=== PATIENT | female | born 1930 | race Caucasian/White ===

== ENCOUNTER 2016-09-07 10:28 | Day surgery (SDC) | payer MEDICARE ==
[~2016-09-07 10:28] MED LIST: PHENYLEPHRINE 2.5% OPHTH 2 ML DROPS ONE
[2016-09-07] MEDS ORDERED: LACTATED RINGERS 500 ML IV ONE (10:52)
[2016-09-07] MEDS ORDERED: MIDAZOLAM 2 MG/2 ML VIAL IVP ONE (11:00)
[2016-09-07] MEDS ORDERED: PROPARACAINE 0.5% OPHTH DROPS 15 ML OPTH ONE (11:51)
[2016-09-07] MEDS ORDERED: EPINEPHrine 1 MG/ML AMP IVP ONE (11:51)
[2016-09-07] MEDS ORDERED: CHONDR SULF/HYALURONATE SYRINGE IO ONE (11:51)
[2016-09-07] MEDS ORDERED: BRIMONIDINE 0.2% OPHTH DROPS 5 ML OPTH ONE (11:51)
[2016-09-07] MEDS ORDERED: TIMOLOL 0.5% OPHTH DROPS OPTH ONE (11:51)
[2016-09-07] MEDS ORDERED: BSS/LIDOCAINE/EPINEPHRINE 1 ML SYRINGE IO ONE (11:52)
[2016-09-07] MEDS ORDERED: TRIAMCIN/MOXIFLOX/VANCO 1 ML VIAL IO ONE ×2 (11:52)
--- NOTE | 2016-09-07 12:36 | OPERATIVE REPORT ---
DATE OF SURGERY: 09/07/2016 00:00:00 PREOPERATIVE DIAGNOSIS: Visually significant cataract, right eye. This is her first cataract surgery. POSTOPERATIVE DIAGNOSIS: Visually significant cataract, right eye. This is her first cataract surgery. NAME OF PROCEDURE: Phacoemulsification posterior chamber intraocular lens implant, right eye. SURGEON: Cezar Miranda MD. ANESTHESIA: Monitored anesthesia care. COMPLICATIONS: None. OPERATIVE INDICATIONS: This is an 86-year-old woman with progressive vision loss in the right eye due to 3+ nuclear sclerotic, 3+ cortical, and 2+ posterior subcapsular cataract. Best corrected visual acuity was 20/200 in the right eye. She also has wet macular degeneration for which she is being treated with Avastin. She was consented at length concerning the risks and benefits of cataract surgery, after which she expressed her desire to proceed with surgery. OPERATIVE PROCEDURE: The patient was taken into OR #2 and placed under monitored anesthesia care. A surgical time-out was conducted confirming the correct patient, correct procedure and correct surgical site. She was given topical anesthesia and then prepped and draped in the usual sterile fashion. The eye was entered at the 12 and 9-o'clock positions. Intracameral lidocaine was injected into the anterior chamber followed by Viscoat. A continuous tear curvilinear capsulorrhexis was performed. The nucleus was hydrodissected and phacoemulsified. The cortex was evacuated using automated infusion and aspiration (I/A). Provisc was injected in the capsular bag and an 18.0 diopter intraocular lens was inserted into the bag. Approximately 0.7 mL of a mixture of triamcinolone, moxifloxacin, and vancomycin was injected subconjunctivally in superior quadrant for infection and inflammation prophylaxis. I/A was used to evacuate the viscoelastic materials. The eye was inflated to physiologic pressure using balanced salt solution and found to be watertight. The patient was taken from the operating room in good condition and given postoperative instructions. JOB #: [id number] EXT JOB #:[id number] NEDA
[2016-09-07 12:40] VITALS: BP 128/60
== END 2016-09-07 10:29 | disposition home or self-care (01) ==
LOC: SDS 10:28
PROVIDERS: ATTEND Ophthalmology
PROC: 08RJ3JZ Replacement of Right Lens with Synthetic Substitute, Percutaneous Approach (ICD-10-PCS; principal; 2016-09-07 11:30)
DX: H25.811 Combined forms of age-related cataract, right eye (principal); J44.9 Chronic obstructive pulmonary disease, unspecified; H35.3230 Exudative age-related macular degeneration, bilateral, stage unspecified; F41.9 Anxiety disorder, unspecified
CPT/HCPCS: 66984; A9270; V2632

== ENCOUNTER 2017-01-18 08:59 | Day surgery (SDC) | payer MEDICARE ==
[~2017-01-18 08:59] MED LIST changes: +BRIMONIDINE 0.2% OPHTH DROPS 5 ML ONE; -PHENYLEPHRINE 2.5% OPHTH 2 ML DROPS ONE; +TIMOLOL 0.5% OPHTH DROPS ONE
[2017-01-18] MEDS ORDERED: PROPARACAINE 0.5% OPHTH DROPS 15 ML ONE (09:16)
[2017-01-18] MEDS ORDERED: CYCLOPENTOLATE 1% OPHTH DROPS 2 ML ONE (09:16)
[2017-01-18] MEDS ORDERED: KETOROLAC 0.45% OPHTH DROPS ONE (09:16)
[2017-01-18] MEDS ORDERED: PHENYLEPHRINE 2.5% OPHTH 2 ML DROPS ONE (09:16)
[2017-01-18] MEDS ORDERED: CYCLOPENTOLATE 1% OPHTH DROPS 2 ML OPTH ONE (09:28)
[2017-01-18] MEDS ORDERED: PHENYLEPHRINE 2.5% OPHTH 2 ML DROPS OPTH ONE (09:28)
[2017-01-18] MEDS ORDERED: PROPARACAINE 0.5% OPHTH DROPS 15 ML OPTH ONE ×2 (09:28→10:26)
[2017-01-18] MEDS ORDERED: KETOROLAC 0.45% OPHTH DROPS OPTH ONE (09:28)
[2017-01-18] MEDS ORDERED: LACTATED RINGERS 500 ML IV ONE (09:35)
[2017-01-18] MEDS ORDERED: MIDAZOLAM 2 MG/2 ML VIAL IVP ONE (10:00)
[2017-01-18] MEDS ORDERED: BRIMONIDINE 0.2% OPHTH DROPS 5 ML OPTH ONE (10:25)
[2017-01-18] MEDS ORDERED: EPINEPHrine 1 MG/ML AMP IVP ONE (10:25)
[2017-01-18] MEDS ORDERED: BSS/LIDOCAINE/EPINEPHRINE 1 ML SYRINGE IO ONE ×2 (10:26)
[2017-01-18] MEDS ORDERED: TIMOLOL 0.5% OPHTH DROPS OPTH ONE (10:26)
[2017-01-18] MEDS ORDERED: CHONDR SULF/HYALURONATE SYRINGE IO ONE (10:26)
[2017-01-18] MEDS ORDERED: TRIAMCIN/MOXIFLOX/VANCO 1 ML VIAL IO ONE (10:26)
[2017-01-18 10:44] VITALS: BP 117/64
--- NOTE | 2017-01-18 11:00 | OPERATIVE REPORT ---
DATE OF SURGERY: 01/18/2017 00:00:00 PREOPERATIVE DIAGNOSIS: Visually significant cataract, left eye. Cataract surgery was performed on th e right eye on 09/07/2016. POSTOPERATIVE DIAGNOSIS: Visually significant cataract, left eye. Cataract surgery was performed on t he right eye on 09/07/2016. NAME OF PROCEDURE: Phacoemulsification posterior chamber intraocular lens implant, left eye. SURGEON: Cezar Miranda MD. ANESTHESIA: Monitored anesthesia care. COMPLICATIONS: None. OPERATIVE INDICATIONS: This is an 86-year-old woman with progressive vision loss in the left eye due to 2+ nuclear sclerotic and 3+ cortical cataract. Best corrected visual acuity was 20/25 with glare t o 20/40 in the left eye. Indications for surgery were overall decrease in vision, difficulty reading, difficulty seeing words, close captions, or game scores on TV. She was consented at length concernin g the risks and benefits of cataract surgery, after which she expressed her desire to proceed with [facility]. OPERATIVE PROCEDURE: The patient was taken into OR #2 and placed under monitored anesthesia care. A s urgical time-out was conducted confirming the correct patient, correct procedure and correct surgical site. She was given topical anesthesia and then prepped and draped in the usual sterile fashion. The eye was entered at the 6- and 3 o'clock positions. Intracameral Shugarcaine was injected into the an terior chamber followed by Viscoat. A continuous tear curvilinear capsulorrhexis was performed. The n ucleus was hydrodissected and phacoemulsified. The cortex was evacuated using automated infusion aspi ration. Provisc was injected into the capsular bag and a 16.5 diopter intraocular lens inserted into the bag. Approximately 0.7 mL of a mixture of triamcinolone, moxifloxacin, and vancomycin was injecte d subconjunctivally in the superior quadrant for infection and inflammation prophylaxis. I/A was used to evacuate the viscoelastic materials. The eye was inflated to physiologic pressure using balanced salt solution and found to be watertight. The patient was taken from the operating room in good condi tion and given postoperative instructions. JOB #: [id number] EXT JOB #:[id number]
== END 2017-01-18 09:00 | disposition home or self-care (01) ==
LOC: SDS 08:59
PROVIDERS: ATTEND Ophthalmology
PROC: 08RK3JZ Replacement of Left Lens with Synthetic Substitute, Percutaneous Approach (ICD-10-PCS; principal; 2017-01-18 10:00)
DX: H25.812 Combined forms of age-related cataract, left eye (principal); J44.9 Chronic obstructive pulmonary disease, unspecified; F17.200 Nicotine dependence, unspecified, uncomplicated
CPT/HCPCS: 66984; A9270; J3490; V2632

== ENCOUNTER 2017-09-05 14:17 | Outpatient (CLI) | payer MEDICARE ==
[2017-09-05 18:03] LABS: BASOPHILS # (AUTO) 0.1 10^3/uL (0.0-0.1); BASOPHILS % (AUTO) 0.9 %; EOSINOPHILS # (AUTO) 0.2 10^3/uL (0.0-0.7); EOSINOPHILS % (AUTO) 2.3 %; LYMPHOCYTES # (AUTO) 1.9 10^3/uL (1.5-3.5); LYMPHOCYTES % (AUTO) 25.9 %; MEAN CORPUSCULAR HEMOGLOBIN 28.4 pg (27.0-31.0); MEAN CORPUSCULAR HGB CONC 32.9 g/dL (32.0-36.0); MEAN CORPUSCULAR VOLUME 86.4 fL (81.0-99.0); MEAN PLATELET VOLUME 9.3 fL (7.9-10.8); MONOCYTES # (AUTO) 0.7 10^3/uL (0.0-1.0); MONOCYTES % (AUTO) 9.8 %; NEUTROPHILS # (AUTO) 4.4 10^3/uL (1.5-6.6); NEUTROPHILS % (AUTO) 61.1 %; PLT - PLATELET COUNT 267 10^3/uL (130-450); RED BLOOD COUNT 4.56 10^6/uL (4.20-5.40); WHITE BLOOD COUNT 7.2 x10^3/uL (4.8-10.8)
[2017-09-05 18:11] LABS: HB2 TOTAL 14.4 g/dL; HEMOGLOBIN A1C 0.5 g/dL; HEMOGLOBIN A1C % 5.3 % (4.6-6.2)
[2017-09-05 18:21] LABS: THYROID STIMULATING HORMONE 1.81 uIU/mL (0.34-5.60)
[2017-09-05 18:27] LABS: FERRITIN 24.2 ng/mL (11.0-306.8)
[2017-09-05 18:41] LABS: ALBUMIN 3.7 g/dL (3.2-5.5); ALBUMIN/GLOBULIN RATIO 1.1 (1.0-2.2); BILIRUBIN,TOTAL 0.6 mg/dL (0.2-1.0); CALCIUM 9.2 mg/dL (8.5-10.3); CREATININE 0.8 mg/dL (0.4-1.0); MAGNESIUM 2.4 mg/dL (1.7-2.8); TOTAL PROTEIN 7.2 g/dL (6.7-8.2)
== END 2017-09-05 14:18 | disposition home or self-care (01) ==
LOC: LAB.F 14:17
PROVIDERS: ATTEND Physician Assistant Medical
DX: G25.9 Extrapyramidal and movement disorder, unspecified (principal); Z86.2 Personal history of diseases of the blood and blood-forming organs and certain disorders involving the immune mechanism; Z51.81 Encounter for therapeutic drug level monitoring; Z79.899 Other long term (current) drug therapy; R73.01 Impaired fasting glucose; R25.2 Cramp and spasm; E04.1 Nontoxic single thyroid nodule
CPT/HCPCS: 36415; 80053; 82728; 83036; 83540; 83735; 84443; 84466; 85025

== ENCOUNTER 2017-11-08 11:51 | Outpatient (CLI) | payer MEDICARE ==
--- NOTE | 2017-11-08 14:56 | Ultrasound Report ---
Procedure Date: 11/08/2017 Accession Number: [id number] / [id number] Procedure: US - Head or Neck Soft Tissue CPT Code: FULL RESULT: EXAM: Head or Neck Soft Tissue DATE: 11/08/2017 12:56 PM CLINICAL HISTORY: THYROID/NECK COMPARISON: 02/19/2015 thyroid ultrasound.. TECHNIQUE: Real time sonographic imaging of the thyroid was performed by the awning erector. Multiple risk control representative static images were saved for review. FINDINGS: THYROID GLAND: Right Lobe: 4.5 x 2.7 x 3.1 cm. Normal background echotexture. Right Lobe Nodules: Dominant 2.9 x 2.8 x 2.7 cm heterogeneous solid nodule. Left Lobe: 4.7 x 0.8 x 1.7 cm. Normal background echotexture. Left Lobe Nodules: There is a 1.2 x 0.3 x 0.8 cm hypoechoic nodule as well as a 0.4 x 0.2 x 0.3 cm heterogeneous isoechoic nodule.. Isthmus: 0.2 cm AP. Isthmic Nodules: None. LYMPH NODES: No adenopathy demonstrated in the central or lateral compartment. OTHER: None. IMPRESSION: 1. Multinodular thyroid with a dominant solid 2.9 cm right lobe nodule. Tissue sampling of the right nodule is recommended unless this has already been proven benign. Management recommendations are based on 2015 [place] [employer] Management Guidelines for Adult Patients with Thyroid Nodules and Differentiated Thyroid Cancer. RADIA
== END 2017-11-08 11:52 | disposition home or self-care (01) ==
LOC: DI 11:51
PROVIDERS: ATTEND Physician Assistant Medical
DX: E04.2 Nontoxic multinodular goiter (principal)
CPT/HCPCS: 76536

== ENCOUNTER 2018-02-24 09:36 | Outpatient (CLI) | payer MEDICARE | END 2018-02-24 09:37 | disposition critical access hospital (66) | LOC: EMS 09:36 | PROVIDERS: ATTEND Surgery | DX: R10.9 Unspecified abdominal pain (principal) | CPT/HCPCS: A0425; A0429 ==

== ENCOUNTER 2018-02-24 10:02 | Inpatient (IN) | payer MEDICARE ==
--- NOTE | 2018-02-24 10:12 | ED Physician Documentation ---
History of Present Illness - Stated complaint Stated Complaint: ABD PX - Additonal information Additional information: hx from pt 87 female BIBA for lower abd pain 01/09 since last night hx divertic pshx appy also has a HH states no fever NVD bloody black BM states has not urinated since last night no bad food travel sick contacts only home med is albuterol Review of Systems Constitutional: denies: Fever Cardiac: denies: Chest pain / pressure Respiratory: denies: Dyspnea GI: reports: Abdominal Pain. denies: Nausea, Vomiting, Diarrhea, Hematemesis, Bloody / black stool : reports: Other (no urine output). denies: Now EGA Musculoskeletal: denies: Neck pain, Back pain Endocrine: denies: Easy bruising / bleeding Immunocompromised: denies: Immunocompromised PD PAST MEDICAL HISTORY - Past Medical History Cardiovascular: None Respiratory: Pneumonia, Other Endocrine/Autoimmune: None GI: None : None HEENT: Chronic vision loss Psych: None Musculoskeletal: None Derm: None - Past Surgical History Past Surgical History: No General: Appendectomy - Present Medications Home Medications: Ambulatory Orders Medication Instructions Recorded Confirmed Albuterol Sulfate [Proair Hfa 2 puffs INH BID 02/24/18 02/24/18 Inhaler] Docusate Sodium 100 mg PO Q2D 02/24/18 02/24/18 Multivitamin [Theragran] 1 tab PO DAILY 02/24/18 02/24/18 diphenhydrAMINE HCl 12.5 mg PO QPM 02/24/18 02/24/18 [Diphenhydramine HCl] - Allergies Allergies/Adverse Reactions: Allergies Allergy/AdvReac Type Severity Reaction Status Date / Time acetaminophen [From Vicodin] Allergy Hives Verified 02/24/18 10:22 hydrocodone [From Vicodin] Allergy Hives Verified 02/24/18 10:22 pramipexole [From Mirapex] Allergy Hives Verified 02/24/18 10:22 pravastatin [From Pravachol] Allergy Hives Verified 02/24/18 10:22 - Social History Does the pt smoke?: No Smoking Status: Never smoker Does the pt drink ETOH?: No Does the pt have substance abuse?: No - Immunizations Immunizations are current?: Yes PD ED PE NORMAL - Vitals Vital signs reviewed: Yes - Neck Neck: Supple, no meningeal sign - Cardiac Cardiac: RRR - Respiratory Respiratory: No respiratory distress - Abdomen Abdomen: Soft, Other (sig TTP aakash ecross lower abd, non peritoneal, no pulsatile mass palpable) - Derm Derm: Normal color - Neuro Neuro: Alert and oriented X 3 Results - Vitals Vitals: Vital Signs - 24 hr 02/24/18 02/24/18 10:13 12:12 Temperature 37.1 C 37.2 C Heart Rate 94 94 Respiratory 20 16 Rate Blood Pressure 130/69 134/45 H O2 Saturation 95 92 Oxygen O2 Source Room air - Labs Labs: Laboratory Tests 02/24/18 02/24/18 02/24/18 10:21 10:21 10:50 WBC 12.1 H RBC 4.37 Hgb 13.0 Hct 38.0 MCV 87.0 MCH 29.7 MCHC 34.1 RDW 13.9 Plt Count 188 MPV 8.7 Neut # (Auto) 10.8 H Lymph # (Auto) 0.5 L Scurry # (Auto) 0.7 Eos # (Auto) 0.0 Baso # (Auto) 0.1 Absolute Nucleated RBC 0.00 Nucleated RBC % 0.0 Sodium 134 L Potassium 3.6 Chloride 101 Carbon Dioxide 25 Anion Gap 8.0 BUN 13 Creatinine 0.9 Estimated GFR (MDRD) 59 L Glucose 148 H Calcium 8.6 Total Bilirubin 1.0 AST 16 ALT 12 Alkaline Phosphatase 75 Total Protein 6.7 Albumin 3.7 Globulin 3.0 Albumin/Globulin Ratio 1.2 Lipase 21 L Urine Color DARK YELLOW Urine Clarity CLEAR Urine pH 5.5 Ur Specific [place] >=1.030 H Urine Protein NEGATIVE Urine Glucose (UA) NEGATIVE Urine Ketones NEGATIVE Urine Occult Blood NEGATIVE Urine Nitrite NEGATIVE Urine Bilirubin NEGATIVE Urine Urobilinogen 0.2 (NORMAL) Ur Leukocyte Esterase NEGATIVE Ur Microscopic Review NOT INDICATED Urine Culture Comments NOT INDICATED - Rads (name of study) CT AP Radiology: See rad report (acute divertic s abscess or perf, mild L hydro s sto ne liekly 2/2 inflammation) PD MEDICAL DECISION MAKING - ED course ED course: small amt urine out padgett with IVF CT shows diverticultitis gave unasyn no perf abscess but feel pt febrile dehydrated and too ill to take PO properly to stay hydrated and take meds will admit paged hospitalist at 1320 Departure - Departure Disposition: 66 [facility] DC/Xfer Clinical Impression: Diverticulitis of gastrointestinal tract, Dehydration Discharge Date/Time: 02/24/18 14:59
[2018-02-24] MEDS ORDERED: MORPHINE 2 MG/ML CARPUJECT IVP STA ×2 (10:13→13:47)
[2018-02-24] MEDS ORDERED: SODIUM CHLORIDE 0.9% 1,000 ML IV ONE (10:13)
[2018-02-24] MEDS ORDERED: ONDANSETRON 4 MG/2 ML VIAL IVP STA (10:13)
[2018-02-24 10:26] LABS: BASOPHILS # (AUTO) 0.1 10^3/uL (0.0-0.1); BASOPHILS % (AUTO) 0.6 %; LYMPHOCYTES # (AUTO) 0.5 10^3/uL (1.5-3.5); MEAN CORPUSCULAR HEMOGLOBIN 29.7 pg (27.0-31.0); MEAN CORPUSCULAR HGB CONC 34.1 g/dL (32.0-36.0); MEAN PLATELET VOLUME 8.7 fL (7.9-10.8); MONOCYTES # (AUTO) 0.7 10^3/uL (0.0-1.0); MONOCYTES % (AUTO) 5.4 %; NEUTROPHILS # (AUTO) 10.8 10^3/uL (1.5-6.6); PLT - PLATELET COUNT 188 10^3/uL (130-450); RED BLOOD COUNT 4.37 10^6/uL (4.20-5.40); RED CELL DISTRIBUTION WIDTH 13.9 % (12.0-15.0); WHITE BLOOD COUNT 12.1 x10^3/uL (4.8-10.8)
[2018-02-24 10:41] LABS: ALBUMIN 3.7 g/dL (3.2-5.5); ALBUMIN/GLOBULIN RATIO 1.2 (1.0-2.2); CALCIUM 8.6 mg/dL (8.5-10.3); CREATININE 0.9 mg/dL (0.4-1.0); TOTAL PROTEIN 6.7 g/dL (6.7-8.2)
[2018-02-24 11:00] LABS: BILIRUBIN,URINE NEGATIVE (NEGATIVE); CLARITY,URINE CLEAR (CLEAR); GLUCOSE, URINE (UA) NEGATIVE (NEGATIVE); KETONES,URINE (UA) NEGATIVE (NEGATIVE); LEUKOCYTE ESTERASE, URINE NEGATIVE (NEGATIVE); NITRITE,URINE NEGATIVE (NEGATIVE); OCCULT BLOOD,URINE NEGATIVE (NEGATIVE); PH,URINE 5.5 PH (5.0-7.5); PROTEIN,URINE NEGATIVE (NEGATIVE); UROBILINOGEN,URINE 0.2 (NORMAL) E.U./dL (NORMAL)
--- NOTE | 2018-02-24 11:38 | CT Report ---
Reason: severe abd pain Procedure Date: 02/24/2018 Accession Number: [id number] / [id number] Procedure: CT - Abdomen/Pelvis W/O CPT Code: FULL RESULT: EXAM: CT ABDOMEN AND PELVIS WITHOUT CONTRAST EXAM DATE: 02/24/2018 10:30 AM. CLINICAL HISTORY: Severe abdominal pain. COMPARISONS: CHEST W/ 01/18/2015 3:29 PM. TECHNIQUE: Routine helical CT imaging was performed through the abdomen and pelvis. IV contrast: None. Enteric contrast: No. Reconstructions: Coronal and sagittal. In accordance with CT protocol optimization, one or more of the following dose reduction techniques were utilized for this exam: automated exposure control, adjustment of mA and/or KV based on patient size, or use of iterative reconstructive technique. FINDINGS: Lung Bases: Unremarkable. Liver: Unremarkable noncontrast appearance. Gallbladder/Bile Ducts: Unremarkable. Spleen: Unremarkable. Pancreas: Unremarkable. Adrenal Glands: Unremarkable. Kidneys: No contour deforming mass. No renal calculi. No right hydronephrosis. There is mild left hydronephrosis. Peritoneal Cavity/Bowel: There is a small hiatal hernia. No bowel obstruction or abnormal colonic stool burden. There is moderate diverticulosis of the sigmoid:. There is a short segment of circumferential wall thickening with adjacent mesenteric fat stranding in the proximal sigmoid colon consistent with acute diverticulitis. No evidence of perforation or abscess formation. The appendix is not well visualized, but there is no inflammatory change or fluid adjacent to the cecum to suggest acute appendicitis. Pelvic Organs: Normal. The bladder and visualized pelvic organs are within normal limits. Vasculature: No aneurysms or other significant abnormality. There is mild atherosclerotic calcification of the abdominal aorta and iliac arteries. Bones: No significant abnormality. Other: None. IMPRESSION: 1. Acute diverticulitis of the sigmoid colon without evidence of perforation or abscess formation. 2. Mild left hydronephrosis. No renal collecting system calculi identified. Mild left hydronephrosis may be secondary to inflammatory changes adjacent to the left ureter due to acute diverticulitis RADIA
[2018-02-24] MEDS ORDERED: AMPICILLIN/SULBACTAM 3 GM in SODIUM CHLORIDE 0.9% MINIBAG 100 ML IV STA (11:55)
--- NOTE | 2018-02-24 14:14 | HISTORY & PHYSICAL EXAMINATION ---
Chief Complaint - Chief Complaint Chief Complaint: LLQ pain, fever, fatigue History of Present Illness - Admitted From Admitted From:: ED - History Obtained From Records Reviewed: yes History obtained from: chart review, patient Exam Limitations: none - History of Present Illness HPI Comment/Other: Mely Gurrola is an elderly 87-year old female with a past medial history of urinary incontinence, bladder prolapse, vaginal wall prolapse, anemia, pre- diabetes, chronic sinusitis, otitis media, zenker's diverticulum, macular de generation, thyroid nodule, muscle cramps, varicose veins, hyperglycemia, dysphagia, COPD, chronic hip pain, restless leg syndrome, diverticulosis, and obesity. The patient lives with her daughter, Kaia and has been independent on her own using only a cane. 2 days ago the patient started to have LLQ abdominal pain, loss of appetite, fever, chills, fatigue and this morning her daughter could not get her out of bed, so called EMS. Once in the ED she was found to have an elevated WBC count of 12.1, an elevated glucose of 148, with otherwise normal labs. Imaging confirmed diverticulitis with abscesses or perforation, a mild left hydro stone likely secondary to inflammation and urinary retention. With her history of a prolapsed bladder, and urinary retention, a padgett cath was inserted which did not show acute UTI and was noted to be dark in color. On exam, her daughter was very intrusive about asking for her PCP to be changed since Joann Bonilla will not prescribe Xanax anymore. It was very difficult to re-focus our conversation to her mother's acute illness and circled back to the opiate crisis, and her mother needing the xanax as she has restless leg syndrome and this is the only medication that has proved to help. On exam the patient is ill appearing, and her daughter talks over her for several of the questions. She denies chest pain, a productive cough, bleeding, rashes, or increased shortness of breath. She will be admitted to inpatient for further treatment of her acute illness. History - Past Medical History Cardiovascular: reports: Hypertension, High cholesterol, Murmur Respiratory: reports: COPD, Pneumonia, Other Neuro: reports: Dementia Endocrine/Autoimmune: reports: HyPOthyroidism GI: reports: GERD, Chronic diarrhea, Chronic constipation, Diverticulitis, Other (zenkers diverticulum) : reports: Incontinence, Nocturia, Frequency, Other (prolapsed bladder) HEENT: reports: Chronic vision loss Psych: reports: Depression, Anxiety Musculoskeletal: reports: Osteoarthritis, Chronic back pain Derm: reports: None MRSA Hx?: No - Past Surgical History General: reports: Appendectomy - Family & Social History Family History: Mother: , Father: , Sister: , Brother: Family History Comment/Other: The patient's parents of old age with no known diseases, her brother after getting electrocuted. She had one sister with no known diseases. 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 She moved in with her daughter in [place] after her in 1999. She is independent with ambulation and ADLs and uses a cane at times. She admits to a 40 year smoking history, denies alcohol use or illicit drug use. - Substance History Use: Uses substance without health or social issues: NONE Abuse: Recurrent use of substance despite neg consequences: NONE Dependence: Experiences withdrawal or developed tolerances: NONE - POLST Patient has POLST: No POLST Status: DNR Meds/Allgy - Home Medications Home Medications: Ambulatory Orders Medication Instructions Recorded Confirmed Albuterol Sulfate [Proair Hfa 2 puffs INH BID 02/24/18 02/24/18 Inhaler] Docusate Sodium 100 mg PO Q2D 02/24/18 02/24/18 Multivitamin [Theragran] 1 tab PO DAILY 02/24/18 02/24/18 diphenhydrAMINE HCl 12.5 mg PO QPM 02/24/18 02/24/18 [Diphenhydramine HCl] - Allergies Allergies/Adverse Reactions: Allergies Allergy/AdvReac Type Severity Reaction Status Date / Time hydrocodone [From Vicodin] Allergy Hives Verified 02/24/18 10:22 pramipexole [From Mirapex] Allergy Hives Verified 02/24/18 10:22 pravastatin [From Pravachol] Allergy Hives Verified 02/24/18 10:22 Review of Systems - Constitutional Constitutional: reports: Fatigue, Fever, Chills, Weakness, Poor appetite - Eyes Eyes: reports: Spots in vision, Vision loss - Ears, Nose & Throat Ears, Nose & Throat: reports: Hearing loss, Nasal congestion - Cardiovascular Cariovascular: reports: Decr. exercise tolerance, Orthopnea - Respiratory Respiratory: reports: Orthopnea - Gastrointestinal Gastrointestinal: reports: Abdominal pain, Abdominal distention, Constipation, Diarrhea, Change in bowel habits, Nausea, Vomiting, Reflux/heartburn, Bloating, Poor appetite - Genitourinary Genitourinary: reports: Dysuria, Frequency, Urgency, Incontinence, Nocturia, Other (prolapsed bladder) - Musculoskeletal Musculoskeletal: reports: Back pain - Neurological Neurological: reports: General weakness, Focal weakness, Memory problems, Pre- existing deficit - Psychiatric Psychiatric: reports: Depression, Anxiety - Hematologic/Lymphatic Hematologic/Lymphatic: reports: Anemia - All Other Systems All Other Systems: reports: Reviewed and negative Prior Level of Functionality: Independent with a cane, no recent falls. Lives independently with her daughter and a prolapsed bladder that becomes "entangled in her underwear at times while she sits". Exam - Vital Signs Reviewed Vital Signs: Yes Vital Signs: Vital Signs x48h Temp Pulse Resp BP Pulse Ox 02/24/18 12:12 37.2 C 94 16 134/45 H 92 02/24/18 10:13 37.1 C 94 20 130/69 95 - Physical Exam General Appearance: positive: No acute distress, Alert Eyes Bilateral: positive: PERRL, Conjunctivae nml ENT: positive: Pharynx nml, No signs of dehydration Neck: positive: No JVD, Trachea midline, Lymphadenopathy (R), Lymphadenopathy (L) Respiratory: positive: Chest non-tender, Other (scattered crackles) Cardiovascular: positive: Regular rate & rhythm, No gallop, Systolic murmur, Decreased pulse(s) Peripheral Pulses: positive: 1+ Abdomen: positive: Tenderness, Guarding, Hepatomegaly, Abnml bowel sounds, Other (obese, soft) Back: positive: Nml inspection Skin: positive: No rash, Warm, Dry Extremities: positive: Non-tender, Nml appearance, No pedal edema Neurologic/Psychiatric: positive: Oriented x3, CN's nml (2-12), Motor nml, Sensation nml, Depressed mood/affect Reflexes: Bicep (R): 3+, Bicep (L): 3+ Sepsis Event Note (H) - Evaluation Current Stage of Sepsis: Ruled out Conclusion/Plan - Problem List (1) Diverticulitis of gastrointestinal tract Conclusion/Plan: The patient has known diverticulitis and has had diverticulitis in the past. 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 She had a fever at home that continues here, a WBC count of 12.1, LLQ abdominal pain, increased abdominal girth, and nausea. Imaging confirms diverticulitis in the sigmoid colon without mention of perforation or abbesses. Plan: Start antibiotics, and a probiotic. (2) COPD (chronic obstructive pulmonary disease) Conclusion/Plan: The patient had a 40 year smoking history, but has not smoked in several years. She states that she has COPD and has a rescue inhaler at home. I have added a duo-neb as needed while she is with us. Plan: Monitor for SOB, duo-neb as needed and prescribed a LABA at discharge. (3) Urinary retention Conclusion/Plan: The patient has both urinary retention and a prolapsed bladder. She has been set up with a pesery device, but this has not occurred yet. A padgett cath was in serted in the ED and preliminary urine results do not show evidence of a UTI. Plan: Continue padgett. (4) Restless leg syndrome Conclusion/Plan: The patient's daughter, Kaia was present for her admission exam and was very focused on how her mother used to be on xanax for her restless legs, but no longer is, which in her opinion, has to do with the PCP "ignoring" her. She has not been prescribed anything for this and takes nightly benadryl. Plan: Continue to to monitor. - Lab Results Lab results reviewed: Yes Nolberto Bones: 02/25/18 06:43 02/25/18 06:43 - Diagnostic Imaging Results Diagnostic Imaging Results: positive: Final report reviewed Diagnostic Imaging Results Comments: EXAM: CT ABDOMEN AND PELVIS WITHOUT CONTRAST EXAM DATE: 02/24/2018 10:30 AM. IMPRESSION: 1. Acute diverticulitis of the sigmoid colon without evidence of perforation or abscess formation. 2. Mild left hydronephrosis. No renal collecting system calculi identified. Mild left hydronephrosis may be secondary to inflammatory changes adjacent to the left ureter due to acute diverticulitis. Core Measures - Anticipated LOS I expect patient to be DC'd or transferred within 96 hours.: Yes - DVT/VTE - Prophylaxis VTE/DVT Device ordered at admit?: Yes VTE/DVT Prophylaxis med ordered at admit?: Yes - Stroke - Rehab Assessment Rehab services assessment to be ordered?: Yes - AMI - Statin at Admit Aspirin Prescribed on Admit: Yes
[2018-02-24] MEDS ORDERED: ACETAMINOPHEN 325 MG TABLET PO STA (14:27)
[2018-02-24] MEDS: SODIUM CHLORIDE FLUSH 0.9% 10 ML SYRINGE IVP SCH (15:59)
[2018-02-24] MEDS: SODIUM CHLORIDE 0.9% 1,000 ML IV SCH (16:00)
[2018-02-24] MEDS: MORPHINE 2 MG/ML CARPUJECT IVP PRN ×2 (17:30→20:50)
[2018-02-24] MEDS ORDERED: CEFEPIME 2 GM in SODIUM CHLORIDE 0.9% MINIBAG 100 ML IV SCH (20:00)
[2018-02-24] MEDS: metroNIDAZOLE 500 MG/100 ML 500 MG/100 ML BAG IV SCH (20:50)
[2018-02-24] MEDS: CEFEPIME 2 GM in SODIUM CHLORIDE 0.9% MINIBAG 100 ML IV SCH (22:07)
[2018-02-25] MEDS: MORPHINE 2 MG/ML CARPUJECT IVP PRN ×3 (00:37→14:24)
[2018-02-25] MEDS: metroNIDAZOLE 500 MG/100 ML 500 MG/100 ML BAG IV SCH ×3 (03:27→18:55)
[2018-02-25] MEDS: SODIUM CHLORIDE FLUSH 0.9% 10 ML SYRINGE IVP SCH ×3 (05:19→18:35)
[2018-02-25] MEDS: SODIUM CHLORIDE 0.9% 1,000 ML IV SCH ×2 (05:39→18:58)
[2018-02-25 06:52] LABS: BASOPHILS % (AUTO) 0.1 %; EOSINOPHILS % (AUTO) 0.1 %; HGB - HEMOGLOBIN 11.6 g/dL (12.0-16.0); LYMPHOCYTES # (AUTO) 0.7 10^3/uL (1.5-3.5); LYMPHOCYTES % (AUTO) 6.1 %; MEAN CORPUSCULAR HEMOGLOBIN 29.6 pg (27.0-31.0); MEAN CORPUSCULAR HGB CONC 34.1 g/dL (32.0-36.0); MEAN CORPUSCULAR VOLUME 86.8 fL (81.0-99.0); MEAN PLATELET VOLUME 8.6 fL (7.9-10.8); MONOCYTES # (AUTO) 0.6 10^3/uL (0.0-1.0); MONOCYTES % (AUTO) 5.4 %; NEUTROPHILS # (AUTO) 10.6 10^3/uL (1.5-6.6); NEUTROPHILS % (AUTO) 88.3 %; PLT - PLATELET COUNT 168 10^3/uL (130-450); RED BLOOD COUNT 3.92 10^6/uL (4.20-5.40)
[2018-02-25 08:25] LABS: ALBUMIN/GLOBULIN RATIO 0.9 (1.0-2.2); BILIRUBIN,TOTAL 1.2 mg/dL (0.2-1.0); CALCIUM 7.8 mg/dL (8.5-10.3); CREATININE 1.2 mg/dL (0.4-1.0); CRP - C-REACTIVE PROTEIN 20.6 mg/dL (0-1.0); MAGNESIUM 1.9 mg/dL (1.7-2.8); PHOSPHORUS 3.3 mg/dL (2.5-4.6); TOTAL PROTEIN 6.2 g/dL (6.7-8.2)
[2018-02-25 08:33] LABS: HB2 TOTAL 12.5 g/dL; HEMOGLOBIN A1C 0.49 g/dL; HEMOGLOBIN A1C % 5.7 % (4.6-6.2)
--- NOTE | 2018-02-25 08:53 | PROVIDER PROGRESS NOTE ---
Subjective - Prog Note Date Prog Note Date: 02/25/18 Prog Note Time: 08:53 - Subjective Pt reports feeling: Improved Subjective: Mely states that her original LLQ only comes and goes and on exam she appears more comfortable. She denies rashes, fevers, chills, cough, or chest pain. She states that she is tired today. Current Medications - Current Medications Current Medications: Active Medications Acetaminophen (Tylenol) 650 mg PO Q4HR PRN PRN Reason: Pain or Fever > 38C (100.4F) Albuterol/Ipratropium (Duoneb) 3 ml INH Q4HR PRN PRN Reason: Wheezing Last Admin: 02/25/18 16:20 Dose: 3 ml Albuterol/Ipratropium (Duoneb) 3 ml INH .RTBID [facility] Sodium Chloride (Normal Saline 0.9%) 1,000 mls @ 83.333 mls/hr IV .Q12H [facility] Last Infusion: 02/25/18 21:08 Dose: 83.333 mls/hr Metronidazole (Flagyl 500 Mg/100 Ml) 500 mg in 100 mls @ 100 mls/hr IV Q8H [facility] Last Infusion: 02/25/18 20:15 Dose: Infused Cefepime HCl 2 gm/ Sodium (Chloride) 100 mls @ 200 mls/hr IV Q12H [facility] Last Infusion: 02/25/18 21:07 Dose: Infused Acetaminophen (Ofirmev) 100 mls @ 400 mls/hr IV Q6HR PRN PRN Reason: PAIN Last Infusion: 02/25/18 20:36 Dose: Infused Lorazepam (Ativan Inj (Vial)) 0.5 mg IVP Q4H PRN PRN Reason: Anxiety Last Admin: 02/25/18 19:47 Dose: 0.5 mg Morphine Sulfate (Morphine (Carpuject)) 2 mg IVP Q2HR PRN PRN Reason: PAIN Last Admin: 02/25/18 14:24 Dose: 2 mg Ondansetron HCl (Zofran Inj) 4 mg IVP Q4HR PRN PRN Reason: Nausea / Vomiting Last Admin: 02/25/18 16:04 Dose: 4 mg Ondansetron HCl (Zofran Odt) 4 mg TL Q4HR PRN PRN Reason: Nausea / Vomiting Polyethylene Glycol (Miralax) 17 gm PO DAILY [facility] Last Admin: 02/25/18 09:19 Dose: 17 gm Prochlorperazine Edisylate (Compazine Inj) 10 mg IVP Q4HR PRN PRN Reason: Nausea / Vomiting Last Admin: 02/25/18 19:47 Dose: 10 mg Prochlorperazine Maleate (Compazine Supp) 25 mg [place] TID PRN PRN Reason: Nausea / Vomiting Saccharomyces Boulardii (Florastor) 500 mg PO BIDWM [facility] Last Admin: 02/25/18 18:35 Dose: Not Given Sodium Chloride (Normal Saline Flush 0.9%) 10 ml IVP PRN PRN PRN Reason: NEEDED PER PROVIDER ORDERS Sodium Chloride (Normal Saline Flush 0.9%) 10 ml IVP 0100,0900,1700 [facility] Last Admin: 02/25/18 18:35 Dose: Not Given Albuterol Sulfate [Proair Hfa Inhaler] 2 puffs INH BID 02/24/18 Docusate Sodium 100 mg PO Q2D 02/24/18 Multivitamin [Theragran] 1 tab PO DAILY 02/24/18 diphenhydrAMINE HCl [Diphenhydramine HCl] 12.5 mg PO QPM 02/24/18 Objective - Vital Signs/Intake & Output Reviewed Vital Signs: Yes Vital Signs: Vital Signs x48h Temp Pulse Resp BP Pulse Ox 02/25/18 08:00 36.7 C 67 22 108/42 L 92 02/25/18 05:25 36.7 C 70 18 112/50 L 94 Intake & Output: Intake & Output 02/22/18 02/23/18 02/24/18 02/25/18 23:59 23:59 23:59 23:59 Intake Total 1600 1100.00 Output Total 500 235 Balance 1100 865.00 - Objective General Appearance: positive: Alert, Moderate distress Eyes Bilateral: positive: PERRL, No lid inflammation Eyes: OU Conjunctivae pale ENT: positive: ENT inspection nml, Pharynx nml, Dry mucous membranes Neck: positive: Thyroid nml, No JVD, Trachea midline, Lymphadenopathy (R), Lymphadenopathy (L) Respiratory: positive: Chest non-tender, No respiratory distress, Breath sounds nml Cardiovascular: positive: Regular rate & rhythm, No gallop, Systolic murmur, Dec reased pulse(s) Peripheral Pulses: 1+ Radial (R), 1+ Radial (L) Abdomen: positive: Tenderness (less than at the time of admission.), Guarding, Hepatomegaly, Other (rounded, soft) Back: positive: Nml inspection Skin: positive: No rash, Warm, Dry, Pallor Extremities: positive: Non-tender, Full ROM, Pedal edema, Joint swelling Neurologic/Psychiatric: positive: Oriented x3, CN's nml (2-12), Motor nml, Sensation nml, Weakness, Depressed mood/affect Reflexes: Bicep (R): 3+, Bicep (L): 3+ - Lab Results Fish Bones: 02/25/18 06:43 02/25/18 06:43 Other Labs: Lab Results x24hrs 02/25/18 02/25/18 02/25/18 Range/Units 06:43 06:43 06:43 WBC (4.8-10.8) x10^3/uL RBC (4.20-5.40) 10^6/uL Hgb (12.0-16.0) g/dL Hct (37.0-47.0) % MCV (81.0-99.0) fL MCH (27.0-31.0) pg MCHC (32.0-36.0) g/dL RDW (12.0-15.0) % Plt Count (130-450) 10^3/uL MPV (7.9-10.8) fL Neut # (Auto) (1.5-6.6) 10^3/uL Lymph # (Auto) (1.5-3.5) 10^3/uL [place] # (Auto) (0.0-1.0) 10^3/uL Eos # (Auto) (0.0-0.7) 10^3/uL Baso # (Auto) (0.0-0.1) 10^3/uL Absolute Nucleated RBC x10^3/uL Nucleated RBC % /100WBC Sodium 136 (135-145) mmol/L Potassium 3.4 L (3.5-5.0) mmol/L Chloride 107 (101-111) mmol/L Carbon Dioxide 23 (21-32) mmol/L Anion Gap 6.0 (6-13) BUN 16 (6-20) mg/dL Creatinine 1.2 H (0.4-1.0) mg/dL Estimated GFR (MDRD) 42 L (>89) Glucose 115 H (70-100) mg/dL Glycated Hemoglobin 5.7 (4.6-6.2) % Estim Average Glucose 117 H (70-100) Lactic Acid 0.9 (0.5-2.2) mmol/L Calcium 7.8 L (8.5-10.3) mg/dL Phosphorus 3.3 (2.5-4.6) mg/dL Magnesium 1.9 (1.7-2.8) mg/dL Total Bilirubin 1.2 H (0.2-1.0) mg/dL AST 18 (10-42) IU/L ALT 14 (10-60) IU/L Alkaline Phosphatase 75 (42-121) IU/L C-Reactive Protein 20.6 H (0-1.0) mg/dL Total Protein 6.2 L (6.7-8.2) g/dL Albumin 3.0 L (3.2-5.5) g/dL Globulin 3.2 (2.1-4.2) g/dL Albumin/Globulin Ratio 0.9 L (1.0-2.2) Lipase (22-51) U/L Urine Color Urine Clarity (CLEAR) Urine pH (5.0-7.5) PH Ur Specific [place] (1.002-1.030) Urine Protein (NEGATIVE) mg/dL Urine Glucose (UA) (NEGATIVE) mg/dL Urine Ketones (NEGATIVE) mg/dL Urine Occult Blood (NEGATIVE) Urine Nitrite (NEGATIVE) Urine Bilirubin (NEGATIVE) Urine Urobilinogen (NORMAL) E.U./dL Ur Leukocyte Esterase (NEGATIVE) Ur Microscopic Review Urine Culture Comments 02/25/18 02/24/18 02/24/18 Range/Units 06:43 10:50 10:21 WBC 12.0 H (4.8-10.8) x10^3/uL RBC 3.92 L (4.20-5.40) 10^6/uL Hgb 11.6 L (12.0-16.0) g/dL Hct 34.0 L (37.0-47.0) % MCV 86.8 (81.0-99.0) fL MCH 29.6 (27.0-31.0) pg MCHC 34.1 (32.0-36.0) g/dL RDW 14.0 (12.0-15.0) % Plt Count 168 (130-450) 10^3/uL MPV 8.6 (7.9-10.8) fL Neut # (Auto) 10.6 H (1.5-6.6) 10^3/uL Lymph # (Auto) 0.7 L (1.5-3.5) 10^3/uL [place] # (Auto) 0.6 (0.0-1.0) 10^3/uL Eos # (Auto) 0.0 (0.0-0.7) 10^3/uL Baso # (Auto) 0.0 (0.0-0.1) 10^3/uL Absolute Nucleated RBC 0.00 x10^3/uL Nucleated RBC % 0.0 /100WBC Sodium 134 L (135-145) mmol/L Potassium 3.6 (3.5-5.0) mmol/L Chloride 101 (101-111) mmol/L Carbon Dioxide 25 (21-32) mmol/L Anion Gap 8.0 (6-13) BUN 13 (6-20) mg/dL Creatinine 0.9 (0.4-1.0) mg/dL Estimated GFR (MDRD) 59 L (>89) Glucose 148 H (70-100) mg/dL Glycated Hemoglobin (4.6-6.2) % Estim Average Glucose (70-100) Lactic Acid (0.5-2.2) mmol/L Calcium 8.6 (8.5-10.3) mg/dL Phosphorus (2.5-4.6) mg/dL Magnesium (1.7-2.8) mg/dL Total Bilirubin 1.0 (0.2-1.0) mg/dL AST 16 (10-42) IU/L ALT 12 (10-60) IU/L Alkaline Phosphatase 75 (42-121) IU/L C-Reactive Protein (0-1.0) mg/dL Total Protein 6.7 (6.7-8.2) g/dL Albumin 3.7 (3.2-5.5) g/dL Globulin 3.0 (2.1-4.2) g/dL Albumin/Globulin Ratio 1.2 (1.0-2.2) Lipase 21 L (22-51) U/L Urine Color DARK YELLOW Urine Clarity CLEAR (CLEAR) Urine pH 5.5 (5.0-7.5) PH Ur Specific [place] >=1.030 H (1.002-1.030) Urine Protein NEGATIVE (NEGATIVE) mg/dL Urine Glucose (UA) NEGATIVE (NEGATIVE) mg/dL Urine Ketones NEGATIVE (NEGATIVE) mg/dL Urine Occult Blood NEGATIVE (NEGATIVE) Urine Nitrite NEGATIVE (NEGATIVE) Urine Bilirubin NEGATIVE (NEGATIVE) Urine Urobilinogen 0.2 (NORMAL) (NORMAL) E.U./dL Ur Leukocyte Esterase NEGATIVE (NEGATIVE) Ur Microscopic Review NOT INDICATED Urine Culture Comments NOT INDICATED 02/24/18 Range/Units 10:21 WBC 12.1 H (4.8-10.8) x10^3/uL RBC 4.37 (4.20-5.40) 10^6/uL Hgb 13.0 (12.0-16.0) g/dL Hct 38.0 (37.0-47.0) % MCV 87.0 (81.0-99.0) fL MCH 29.7 (27.0-31.0) pg MCHC 34.1 (32.0-36.0) g/dL RDW 13.9 (12.0-15.0) % Plt Count 188 (130-450) 10^3/uL MPV 8.7 (7.9-10.8) fL Neut # (Auto) 10.8 H (1.5-6.6) 10^3/uL Lymph # (Auto) 0.5 L (1.5-3.5) 10^3/uL [place] # (Auto) 0.7 (0.0-1.0) 10^3/uL Eos # (Auto) 0.0 (0.0-0.7) 10^3/uL Baso # (Auto) 0.1 (0.0-0.1) 10^3/uL Absolute Nucleated RBC 0.00 x10^3/uL Nucleated RBC % 0.0 /100WBC Sodium (135-145) mmol/L Potassium (3.5-5.0) mmol/L Chloride (101-111) mmol/L Carbon Dioxide (21-32) mmol/L Anion Gap (6-13) BUN (6-20) mg/dL Creatinine (0.4-1.0) mg/dL Estimated GFR (MDRD) (>89) Glucose (70-100) mg/dL Glycated Hemoglobin (4.6-6.2) % Estim Average Glucose (70-100) Lactic Acid (0.5-2.2) mmol/L Calcium (8.5-10.3) mg/dL Phosphorus (2.5-4.6) mg/dL Magnesium (1.7-2.8) mg/dL Total Bilirubin (0.2-1.0) mg/dL AST (10-42) IU/L ALT (10-60) IU/L Alkaline Phosphatase (42-121) IU/L C-Reactive Protein (0-1.0) mg/dL Total Protein (6.7-8.2) g/dL Albumin (3.2-5.5) g/dL Globulin (2.1-4.2) g/dL Albumin/Globulin Ratio (1.0-2.2) Lipase (22-51) U/L Urine Color Urine Clarity (CLEAR) Urine pH (5.0-7.5) PH Ur Specific [place] (1.002-1.030) Urine Protein (NEGATIVE) mg/dL Urine Glucose (UA) (NEGATIVE) mg/dL Urine Ketones (NEGATIVE) mg/dL Urine Occult Blood (NEGATIVE) Urine Nitrite (NEGATIVE) Urine Bilirubin (NEGATIVE) Urine Urobilinogen (NORMAL) E.U./dL Ur Leukocyte Esterase (NEGATIVE) Ur Microscopic Review Urine Culture Comments ABX Reporting Has patient been on IV antibiotics over the past 48 hours?: Yes Sepsis Event Note (H) - Evaluation Current Stage of Sepsis: Ruled out Assessment/Plan - Problem List (1) Diverticulitis of gastrointestinal tract Impression: The patient has known diverticulitis and has had diverticulitis in the past. 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 She had a fever at home that continued shortly after admission, but is now resolved. She had a WBC count of 12.1 that is now 12.0. She had severe LLQ abdominal pain and on exam today, this is much improved. She continues to have an increased abdominal girth, and nausea. She is not tolerating PO intake. Imaging confirms diverticulitis in the sigmoid colon without mention of perforation or abbesses. Plan: Continue IV antibiotics, control nausea, and continue probiotic. (2) Nausea & vomiting Impression: The patient's primary complaint today was her ongoing N/V and there was a request for additional medications over her as needed Zofran. I have added a compazine AK/IV med, and IV lorazepam as this can be calming, having anti-emetic effects. Plan: Continue to monitor and treat underlying cause of diverticulitis. 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 She has been set up with a pesery device, but this has not occurred yet. A padgett cath was inserted in the ED and preliminary urine results do not show evidence of a UTI. Plan: Continue padgett. (4) Restless leg syndrome Impression: The patient's daughter, Kaia was present for her admission exam and was very focused on how her mother used to be on xanax for her restless legs, but no longer is, which in her opinion, has to do with the PCP "ignoring" her. She has not been prescribed anything for this and takes nightly benadryl. Today care in [place] paid her a visit and suggested that they contact [facility] since that is the patient's insurance and there is no point in making a referral if it is not approved by [facility] first. To help with the patient's nausea, I have added IV lorazepam, that may also help with her restless legs. Plan: Continue to to monitor. (5) COPD (chronic obstructive pulmonary disease) Impression: The patient had a 40 year smoking history, but has not smoked in several years. She states that she has COPD and has a rescue inhaler at home. She continues on a duo-neb as needed while she is with us. She talked today about having pulmonary nodules in the past that were caused by her "advair inhaler", but have since resolved. Plan: Monitor for SOB, duo-neb as needed and prescribed a LABA at discharge.
[2018-02-25] MEDS: CEFEPIME 2 GM in SODIUM CHLORIDE 0.9% MINIBAG 100 ML IV SCH ×2 (09:13→20:37)
[2018-02-25] MEDS: POLYETHYLENE GLYCOL 3350 17 GM PACKET PO SCH (09:19)
[2018-02-25] MEDS: SACCHAROMYCES BOULARDII 250 MG CAPSULE PO SCH ×2 (09:20→18:35)
[2018-02-25] MEDS ORDERED: ONDANSETRON ODT 4 MG TABLET TL PRN (10:55)
[2018-02-25] MEDS: ONDANSETRON 4 MG/2 ML VIAL IVP PRN ×2 (11:51→16:04)
[2018-02-25] MEDS: IPRATROPIUM/ALBUTEROL 3 ML NEB INH PRN (16:20)
[2018-02-25] MEDS ORDERED: ACETAMINOPHEN 325 MG TABLET PO PRN (19:01)
[2018-02-25] MEDS ORDERED: ACETAMINOPHEN 1,000 MG/100 ML 100 ML IV PRN (19:01)
[2018-02-25] MEDS ORDERED: PROCHLORPERAZINE 25 MG SUPP PR PRN (19:02)
[2018-02-25] MEDS ORDERED: PROCHLORPERAZINE 10 MG/2 ML VIAL IVP PRN (19:02)
[2018-02-25] MEDS: LORazepam 2 MG/ML VIAL IVP PRN (19:47)
[2018-02-26] MEDS: metroNIDAZOLE 500 MG/100 ML 500 MG/100 ML BAG IV SCH ×3 (04:05→19:43)
[2018-02-26] MEDS: SODIUM CHLORIDE FLUSH 0.9% 10 ML SYRINGE IVP SCH ×3 (04:06→17:01)
[2018-02-26 06:07] LABS: BASOPHILS % (AUTO) 0.3 %; EOSINOPHILS # (AUTO) 0.1 10^3/uL (0.0-0.7); EOSINOPHILS % (AUTO) 1.2 %; HGB - HEMOGLOBIN 10.3 g/dL (12.0-16.0); LYMPHOCYTES # (AUTO) 0.9 10^3/uL (1.5-3.5); LYMPHOCYTES % (AUTO) 10.4 %; MEAN CORPUSCULAR HEMOGLOBIN 30.1 pg (27.0-31.0); MEAN CORPUSCULAR HGB CONC 33.7 g/dL (32.0-36.0); MEAN CORPUSCULAR VOLUME 89.3 fL (81.0-99.0); MEAN PLATELET VOLUME 8.8 fL (7.9-10.8); MONOCYTES # (AUTO) 0.6 10^3/uL (0.0-1.0); MONOCYTES % (AUTO) 7.6 %; NEUTROPHILS # (AUTO) 6.6 10^3/uL (1.5-6.6); NEUTROPHILS % (AUTO) 80.5 %; PLT - PLATELET COUNT 139 10^3/uL (130-450); RED BLOOD COUNT 3.41 10^6/uL (4.20-5.40); RED CELL DISTRIBUTION WIDTH 13.6 % (12.0-15.0); WHITE BLOOD COUNT 8.2 x10^3/uL (4.8-10.8)
[2018-02-26 06:20] LABS: ALBUMIN 2.6 g/dL (3.2-5.5); BILIRUBIN,TOTAL 0.6 mg/dL (0.2-1.0); CALCIUM 7.8 mg/dL (8.5-10.3); CREATININE 0.9 mg/dL (0.4-1.0); TOTAL PROTEIN 5.3 g/dL (6.7-8.2)
[2018-02-26] MEDS ORDERED: POTASSIUM CHLORIDE 20 MEQ TABLET PO SCH (08:11)
[2018-02-26] MEDS: MORPHINE 2 MG/ML CARPUJECT IVP PRN ×3 (08:47→19:19)
[2018-02-26] MEDS: POLYETHYLENE GLYCOL 3350 17 GM PACKET PO SCH (08:48)
[2018-02-26] MEDS: SACCHAROMYCES BOULARDII 250 MG CAPSULE PO SCH ×2 (08:48→16:59)
[2018-02-26] MEDS: SODIUM CHLORIDE 0.9% 1,000 ML IV SCH ×2 (08:49→11:02)
[2018-02-26] MEDS: IPRATROPIUM/ALBUTEROL 3 ML NEB INH SCH (09:00)
[2018-02-26] MEDS: CEFEPIME 2 GM in SODIUM CHLORIDE 0.9% MINIBAG 100 ML IV SCH ×2 (09:47→22:45)
--- NOTE | 2018-02-26 13:01 | PROVIDER PROGRESS NOTE ---
Subjective - Prog Note Date Prog Note Date: 02/26/18 - Subjective Pt reports feeling: Improved Subjective: pt request solid diet " I am from no regular food." we change the diet for pt. But unfortunately after pt ate her lung with soft diet, she report her left abdominal pain come back again. She request clear liquid diet again. She denies chest pain, fever, chill, SOB Current Medications - Current Medications Current Medications: Active Medications Acetaminophen (Tylenol) 650 mg PO Q4HR PRN PRN Reason: Pain or Fever > 38C (100.4F) Albuterol/Ipratropium (Duoneb) 3 ml INH Q4HR PRN PRN Reason: Wheezing Last Admin: 02/25/18 16:20 Dose: 3 ml Albuterol/Ipratropium (Duoneb) 3 ml INH .RTBID [facility] Last Admin: 02/26/18 09:00 Dose: 3 ml Metronidazole (Flagyl 500 Mg/100 Ml) 500 mg in 100 mls @ 100 mls/hr IV Q8H [facility] Last Admin: 02/26/18 11:30 Dose: 100 mls/hr Cefepime HCl 2 gm/ Sodium (Chloride) 100 mls @ 200 mls/hr IV Q12H [facility] Last Infusion: 02/26/18 10:20 Dose: Infused Acetaminophen (Ofirmev) 100 mls @ 400 mls/hr IV Q6HR PRN PRN Reason: PAIN Last Infusion: 02/25/18 20:36 Dose: Infused Sodium Chloride (Normal Saline 0.9%) 1,000 mls @ 75 mls/hr IV .[id number] [facility] Last Admin: 02/26/18 11:02 Dose: 75 mls/hr Lorazepam (Ativan Inj (Vial)) 0.5 mg IVP Q4H PRN PRN Reason: Anxiety Last Admin: 02/25/18 19:47 Dose: 0.5 mg Morphine Sulfate (Morphine (Carpuject)) 2 mg IVP Q2HR PRN PRN Reason: PAIN Last Admin: 02/26/18 12:43 Dose: 2 mg Ondansetron HCl (Zofran Inj) 4 mg IVP Q4HR PRN PRN Reason: Nausea / Vomiting Last Admin: 02/25/18 16:04 Dose: 4 mg Ondansetron HCl (Zofran Odt) 4 mg TL Q4HR PRN PRN Reason: Nausea / Vomiting Polyethylene Glycol (Miralax) 17 gm PO DAILY [facility] Last Admin: 02/26/18 08:48 Dose: 17 gm Prochlorperazine Edisylate (Compazine Inj) 10 mg IVP Q4HR PRN PRN Reason: Nausea / Vomiting Last Admin: 02/25/18 19:47 Dose: 10 mg Prochlorperazine Maleate (Compazine Supp) 25 mg [place] TID PRN PRN Reason: Nausea / Vomiting Saccharomyces Boulardii (Florastor) 500 mg PO BIDWM [facility] Last Admin: 02/26/18 08:48 Dose: 500 mg Sodium Chloride (Normal Saline Flush 0.9%) 10 ml IVP PRN PRN PRN Reason: NEEDED PER PROVIDER ORDERS Sodium Chloride (Normal Saline Flush 0.9%) 10 ml IVP 0100,0900,1700 [facility] Last Admin: 02/26/18 09:48 Dose: Not Given Albuterol Sulfate [Proair Hfa Inhaler] 2 puffs INH BID 02/24/18 Docusate Sodium 100 mg PO Q2D 02/24/18 Multivitamin [Theragran] 1 tab PO DAILY 02/24/18 diphenhydrAMINE HCl [Diphenhydramine HCl] 12.5 mg PO QPM 02/24/18 Objective - Vital Signs/Intake & Output Reviewed Vital Signs: Yes Vital Signs: Vital Signs x48h Temp Pulse Pulse Resp BP BP Pulse Ox 02/26/18 09:00 63 18 02/26/18 08:00 36.7 C 59 L 18 108/47 L 97 02/26/18 06:35 53 L 105/42 L Intake & Output: Intake & Output 02/23/18 02/24/18 02/25/18 02/26/18 23:59 23:59 23:59 23:59 Intake Total 1600 2850.00 1846.250 Output Total 500 635 200 Balance 1100 2215.00 1646.250 - Objective General Appearance: positive: No acute distress, Alert. negative: Lethargic Eyes Bilateral: positive: Normal inspection, PERRL, No lid inflammation, Conjunctivae nml ENT: positive: ENT inspection nml, Pharynx nml, No signs of dehydration. negati ve: Purulent nasal drainage, Pharyngeal erythema, Oral lesions Neck: positive: Nml inspection, Thyroid nml, No JVD, Trachea midline. negative: Thyromegaly, Lymphadenopathy (R), Lymphadenopathy (L), Stiff neck, Swelling/bruising, Tracheal deviation Respiratory: positive: Chest non-tender, No respiratory distress, Breath sounds nml. negative: Wheezes, Rales, Rhonchi Cardiovascular: positive: Regular rate & rhythm, No murmur, No gallop. negative: Irregularly irregular, Extrasystoles, Tachycardia, Bradycardia, JVD present, Systolic murmur, Diastolic murmur Peripheral Pulses: 2+ Radial (R), 2+ Radial (L), 2+ Dorsalis pedis (R), 2+ Dorsalis pedis (L) Abdomen: positive: No organomegaly, Nml bowel sounds, No distention, Tenderness. negative: Guarding, Rebound Back: positive: Nml inspection. negative: CVA tenderness (R), CVA tenderness (L) Skin: positive: Color nml, No rash, Warm, Dry. negative: Cyanosis, Diaphoresis, Pallor Extremities: positive: Non-tender, Full ROM, Nml appearance. negative: Calf tenderness, Joint swelling, Bill's sign/cords Neurologic/Psychiatric: positive: Oriented x3, Motor nml, Sensation nml, Mood/affect nml. negative: Weakness, Sensory loss, Facial droop, Slurred/abnml speech, Depressed mood/affect - Lab Results Fish Bones: 02/26/18 05:46 02/26/18 05:46 Other Labs: Lab Results x24hrs 02/26/18 02/26/18 Range/Units 05:46 05:46 WBC 8.2 (4.8-10.8) x10^3/uL RBC 3.41 L (4.20-5.40) 10^6/uL Hgb 10.3 L (12.0-16.0) g/dL Hct 30.5 L (37.0-47.0) % MCV 89.3 (81.0-99.0) fL MCH 30.1 (27.0-31.0) pg MCHC 33.7 (32.0-36.0) g/dL RDW 13.6 (12.0-15.0) % Plt Count 139 (130-450) 10^3/uL MPV 8.8 (7.9-10.8) fL Neut # (Auto) 6.6 (1.5-6.6) 10^3/uL Lymph # (Auto) 0.9 L (1.5-3.5) 10^3/uL [place] # (Auto) 0.6 (0.0-1.0) 10^3/uL Eos # (Auto) 0.1 (0.0-0.7) 10^3/uL Baso # (Auto) 0.0 (0.0-0.1) 10^3/uL Absolute Nucleated RBC 0.00 x10^3/uL Nucleated RBC % 0.0 /100WBC Sodium 138 (135-145) mmol/L Potassium 3.3 L (3.5-5.0) mmol/L Chloride 109 (101-111) mmol/L Carbon Dioxide 23 (21-32) mmol/L Anion Gap 6.0 (6-13) BUN 16 (6-20) mg/dL Creatinine 0.9 (0.4-1.0) mg/dL Estimated GFR (MDRD) 59 L (>89) Glucose 90 (70-100) mg/dL Calcium 7.8 L (8.5-10.3) mg/dL Total Bilirubin 0.6 (0.2-1.0) mg/dL AST 14 (10-42) IU/L ALT 11 (10-60) IU/L Alkaline Phosphatase 63 (42-121) IU/L Total Protein 5.3 L (6.7-8.2) g/dL Albumin 2.6 L (3.2-5.5) g/dL Globulin 2.7 (2.1-4.2) g/dL Albumin/Globulin Ratio 1.0 (1.0-2.2) ABX Reporting Has patient been on IV antibiotics over the past 48 hours?: Yes Sepsis Event Note (H) - Evaluation Current Stage of Sepsis: Ruled out Assessment/Plan - Problem List (1) Diverticulitis of gastrointestinal tract Impression: (1) Diverticulitis of gastrointestinal tract pt's WBC is down to the normal. pt can not tolerate regular food yet, will continue clear liquid diet per pt's request. continue antibiotics continue antiemtosis continue IVF of NS, precaution of fluid overload (2) Nausea & vomiting better, continue PRN of antiemosis Continue to treat underlying cause of diverticulitis. continue IVF of NS (3) Urinary retention stable, Continue padgett. (4) Restless leg syndrome stable, continue IV lorazepam PRN , that may also help with her restless legs. (5) COPD (chronic obstructive pulmonary disease) stable, continue duo-neb as needed continue supplement of O2 as needed
[2018-02-26] MEDS ORDERED: ALPRAZolam 0.25 MG TABLET PO PRN (17:13)
[2018-02-26] MEDS ORDERED: SIMETHICONE CHEW 80 MG TABLET PO PRN (17:14)
[2018-02-26] MEDS: DOCUSATE SODIUM 250 MG CAPSULE PO SCH (18:22)
[2018-02-26] MEDS: SENNA 8.6 MG TABLET PO SCH (18:22)
[2018-02-26] MEDS: SODIUM CHLORIDE FLUSH 0.9% 10 ML SYRINGE IVP PRN (19:17)
[2018-02-26] MEDS: guaiFENesin 100 MG/5 ML UDC PO PRN (22:51)
[2018-02-26] MEDS: LORazepam 2 MG/ML VIAL IVP PRN (23:40)
[2018-02-26] MEDS: IPRATROPIUM/ALBUTEROL 3 ML NEB INH PRN (23:50)
[2018-02-27] MEDS: SODIUM CHLORIDE FLUSH 0.9% 10 ML SYRINGE IVP SCH ×3 (00:02→20:42)
[2018-02-27] MEDS: metroNIDAZOLE 500 MG/100 ML 500 MG/100 ML BAG IV SCH ×3 (03:38→20:42)
[2018-02-27] MEDS: SODIUM CHLORIDE 0.9% 1,000 ML IV SCH ×2 (03:38→03:42)
[2018-02-27 05:42] LABS: BASOPHILS % (AUTO) 0.5 %; EOSINOPHILS % (AUTO) 0.2 %; HGB - HEMOGLOBIN 10.8 g/dL (12.0-16.0); LYMPHOCYTES # (AUTO) 0.5 10^3/uL (1.5-3.5); LYMPHOCYTES % (AUTO) 6.2 %; MEAN CORPUSCULAR HEMOGLOBIN 29.3 pg (27.0-31.0); MEAN CORPUSCULAR HGB CONC 32.7 g/dL (32.0-36.0); MEAN CORPUSCULAR VOLUME 89.4 fL (81.0-99.0); MEAN PLATELET VOLUME 8.9 fL (7.9-10.8); MONOCYTES # (AUTO) 0.6 10^3/uL (0.0-1.0); NEUTROPHILS # (AUTO) 7.3 10^3/uL (1.5-6.6); NEUTROPHILS % (AUTO) 86.1 %; PLT - PLATELET COUNT 187 10^3/uL (130-450); RED CELL DISTRIBUTION WIDTH 13.6 % (12.0-15.0); WHITE BLOOD COUNT 8.5 x10^3/uL (4.8-10.8)
[2018-02-27 05:56] LABS: ALBUMIN 2.7 g/dL (3.2-5.5); ALBUMIN/GLOBULIN RATIO 0.9 (1.0-2.2); BILIRUBIN,TOTAL 0.8 mg/dL (0.2-1.0); CALCIUM 7.9 mg/dL (8.5-10.3); CREATININE 0.8 mg/dL (0.4-1.0); TOTAL PROTEIN 5.6 g/dL (6.7-8.2)
[2018-02-27] MEDS ORDERED: POTASSIUM CHLORIDE 20 MEQ TABLET PO SCH (08:00)
[2018-02-27] MEDS ORDERED: POTASSIUM CHLOR 10 MEQ/100 ML 10 MEQ/100 ML BAG IV ONE (08:00)
[2018-02-27] MEDS: SACCHAROMYCES BOULARDII 250 MG CAPSULE PO SCH ×2 (08:14→16:45)
[2018-02-27] MEDS: DOCUSATE SODIUM 250 MG CAPSULE PO SCH (08:15)
[2018-02-27] MEDS: SENNA 8.6 MG TABLET PO SCH (08:15)
[2018-02-27] MEDS: guaiFENesin 100 MG/5 ML UDC PO PRN (08:16)
[2018-02-27] MEDS: POLYETHYLENE GLYCOL 3350 17 GM PACKET PO SCH (08:24)
[2018-02-27] MEDS: CEFEPIME 2 GM in SODIUM CHLORIDE 0.9% MINIBAG 100 ML IV SCH ×2 (09:28→21:43)
--- NOTE | 2018-02-27 11:23 | XRAY Report ---
Reason: sob Procedure Date: 02/27/2018 Accession Number: [id number] / [id number] Procedure: XR - Chest 1 View X-Ray CPT Code: 22843 FULL RESULT: EXAM: CHEST RADIOGRAPHY EXAM DATE: 02/27/2018 10:56 AM. CLINICAL HISTORY: Shortness of breath. COMPARISON: Chest 2 view PA/LAT 12/24/2014 7:04 PM. TECHNIQUE: 1 view. FINDINGS: Lungs/Pleura: Interval development of linear opacities in the right midlung and increase in left basilar opacities on a background of increasing interstitial markings. No pleural effusion. No pneumothorax. Mediastinum: Stable calcified arch of the ectatic aorta. Cardiac silhouette is unchanged. Other: None. IMPRESSION: Increasing lung markings, atelectasis versus airspace disease. RADIA
[2018-02-27] MEDS: IPRATROPIUM/ALBUTEROL 3 ML NEB INH SCH ×2 (11:55→20:29)
[2018-02-27] MEDS: LORazepam 2 MG/ML VIAL IVP PRN ×2 (13:03→17:38)
--- NOTE | 2018-02-27 16:10 | PROVIDER PROGRESS NOTE ---
Subjective - Prog Note Date Prog Note Date: 02/27/18 - Subjective Pt reports feeling: Improved Subjective: pt report her abdominal pain is good controlled. No N/V/D. pt report she has some cough, but she denies fever, chill, chest pain. Current Medications - Current Medications Current Medications: Active Medications Acetaminophen (Tylenol) 650 mg PO Q4HR PRN PRN Reason: Pain or Fever > 38C (100.4F) Albuterol/Ipratropium (Duoneb) 3 ml INH Q4HR PRN PRN Reason: Wheezing Last Admin: 02/26/18 23:50 Dose: 3 ml Albuterol/Ipratropium (Duoneb) 3 ml INH .RTBID [facility] Last Admin: 02/27/18 11:55 Dose: 3 ml Docusate Sodium (Colace 250mg Capsule) 250 - 500 mg PO DAILY [facility] Last Admin: 02/27/18 08:15 Dose: Not Given Guaifenesin (Robitussin Liquid) 100 mg PO Q6HR PRN PRN Reason: Cough Last Admin: 02/26/18 22:51 Dose: 100 mg Guaifenesin (Mucinex) 600 mg PO BID [facility] Metronidazole (Flagyl 500 Mg/100 Ml) 500 mg in 100 mls @ 100 mls/hr IV Q8H [facility] Last Infusion: 02/27/18 13:25 Dose: Infused Cefepime HCl 2 gm/ Sodium (Chloride) 100 mls @ 200 mls/hr IV Q12H [facility] Last Infusion: 02/27/18 10:00 Dose: Infused Acetaminophen (Ofirmev) 100 mls @ 400 mls/hr IV Q6HR PRN PRN Reason: PAIN Last Infusion: 02/25/18 20:36 Dose: Infused Lorazepam (Ativan Inj (Vial)) 1 mg IVP Q4H PRN PRN Reason: Anxiety Last Admin: 02/27/18 13:03 Dose: 1 mg Morphine Sulfate (Morphine (Carpuject)) 2 mg IVP Q2HR PRN PRN Reason: PAIN Last Admin: 02/26/18 19:19 Dose: 2 mg Ondansetron HCl (Zofran Inj) 4 mg IVP Q4HR PRN PRN Reason: Nausea / Vomiting Last Admin: 02/25/18 16:04 Dose: 4 mg Ondansetron HCl (Zofran Odt) 4 mg TL Q4HR PRN PRN Reason: Nausea / Vomiting Polyethylene Glycol (Miralax) 17 gm PO DAILY [facility] Last Admin: 02/27/18 08:24 Dose: 17 gm Prochlorperazine Edisylate (Compazine Inj) 10 mg IVP Q4HR PRN PRN Reason: Nausea / Vomiting Last Admin: 02/25/18 19:47 Dose: 10 mg Prochlorperazine Maleate (Compazine Supp) 25 mg GA TID PRN PRN Reason: Nausea / Vomiting Saccharomyces Boulardii (Florastor) 500 mg PO BIDWM [facility] Last Admin: 02/27/18 08:14 Dose: 500 mg Senna (Senokot) 8.6 - 17.2 mg PO DAILY [facility] Last Admin: 02/27/18 08:15 Dose: Not Given Simethicone (Mylicon) 80 mg PO 0900,1300,1800,2100 PRN PRN Reason: Gas Last Admin: 02/26/18 18:23 Dose: 80 mg Sodium Chloride (Normal Saline Flush 0.9%) 10 ml IVP PRN PRN PRN Reason: NEEDED PER PROVIDER ORDERS Last Admin: 02/26/18 19:17 Dose: 10 ml Sodium Chloride (Normal Saline Flush 0.9%) 10 ml IVP 0100,0900,1700 [facility] Last Admin: 02/27/18 08:24 Dose: Not Given Trazodone HCl (Desyrel) 50 mg PO QPM [facility] Albuterol Sulfate [Proair Hfa Inhaler] 2 puffs INH BID 02/24/18 Docusate Sodium 100 mg PO Q2D 02/24/18 Multivitamin [Theragran] 1 tab PO DAILY 02/24/18 diphenhydrAMINE HCl [Diphenhydramine HCl] 12.5 mg PO QPM 02/24/18 Objective - Vital Signs/Intake & Output Reviewed Vital Signs: Yes Vital Signs: Vital Signs x48h Temp Pulse Pulse Resp BP Pulse Ox 02/27/18 15:50 38.8 C H 91 18 121/57 L 98 02/27/18 11:55 80 18 Intake & Output: Intake & Output 02/24/18 02/25/18 02/26/18 02/27/18 23:59 23:59 23:59 23:59 Intake Total 1600 2850.00 2446.250 2655.00 Output Total 500 635 750 575 Balance 1100 2215.00 5864.109 2306.00 - Objective General Appearance: positive: No acute distress, Alert. negative: Lethargic Eyes Bilateral: positive: Normal inspection, PERRL, No lid inflammation, Conjunctivae nml ENT: positive: ENT inspection nml, Pharynx nml, No signs of dehydration. negative: Purulent nasal drainage, Pharyngeal erythema, Oral lesions Neck: positive: Nml inspection, Thyroid nml, No JVD, Trachea midline. negative: Thyromegaly, Lymphadenopathy (R), Lymphadenopathy (L), Stiff neck, Swel ling/bruising, Tracheal deviation Respiratory: positive: Chest non-tender, No respiratory distress, Rhonchi. negative: Breath sounds nml, Wheezes, Rales Cardiovascular: positive: Regular rate & rhythm, No murmur, No gallop. negative: Irregularly irregular, Extrasystoles, Tachycardia, Bradycardia, JVD present, Systolic murmur, Diastolic murmur Peripheral Pulses: 2+ Radial (R), 2+ Radial (L), 2+ Dorsalis pedis (R), 2+ Jair salis pedis (L) Abdomen: positive: Non-tender, No organomegaly, Nml bowel sounds, No distention. negative: Tenderness, Guarding, Rebound Back: positive: Nml inspection. negative: CVA tenderness (R), CVA tenderness (L) Skin: positive: Color nml, No rash, Warm, Dry. negative: Cyanosis, Diaphoresis, Pallor Extremities: positive: Non-tender, Full ROM, Nml appearance. negative: Calf tenderness, Joint swelling, Bill's sign/cords Neurologic/Psychiatric: positive: Sensation nml. negative: Weakness, Sensory loss, Facial droop, Slurred/abnml speech, Depressed mood/affect - Lab Results Fish Bones: 02/27/18 05:25 02/27/18 05:25 Other Labs: Lab Results x24hrs 02/27/18 02/27/18 Range/Units 05:25 05:25 WBC 8.5 (4.8-10.8) x10^3/uL RBC 3.70 L (4.20-5.40) 10^6/uL Hgb 10.8 L (12.0-16.0) g/dL Hct 33.1 L (37.0-47.0) % MCV 89.4 (81.0-99.0) fL MCH 29.3 (27.0-31.0) pg MCHC 32.7 (32.0-36.0) g/dL RDW 13.6 (12.0-15.0) % Plt Count 187 (130-450) 10^3/uL MPV 8.9 (7.9-10.8) fL Neut # (Auto) 7.3 H (1.5-6.6) 10^3/uL Lymph # (Auto) 0.5 L (1.5-3.5) 10^3/uL [place] # (Auto) 0.6 (0.0-1.0) 10^3/uL Eos # (Auto) 0.0 (0.0-0.7) 10^3/uL Baso # (Auto) 0.0 (0.0-0.1) 10^3/uL Absolute Nucleated RBC 0.00 x10^3/uL Nucleated RBC % 0.0 /100WBC Sodium 140 (135-145) mmol/L Potassium 3.4 L (3.5-5.0) mmol/L Chloride 113 H (101-111) mmol/L Carbon Dioxide 21 (21-32) mmol/L Anion Gap 6.0 (6-13) BUN 14 (6-20) mg/dL Creatinine 0.8 (0.4-1.0) mg/dL Estimated GFR (MDRD) 68 L (>89) Glucose 114 H (70-100) mg/dL Calcium 7.9 L (8.5-10.3) mg/dL Total Bilirubin 0.8 (0.2-1.0) mg/dL AST 15 (10-42) IU/L ALT 12 (10-60) IU/L Alkaline Phosphatase 64 (42-121) IU/L Total Protein 5.6 L (6.7-8.2) g/dL Albumin 2.7 L (3.2-5.5) g/dL Globulin 2.9 (2.1-4.2) g/dL Albumin/Globulin Ratio 0.9 L (1.0-2.2) ABX Reporting Has patient been on IV antibiotics over the past 48 hours?: Yes Sepsis Event Note (H) - Evaluation Current Stage of Sepsis: Ruled out Assessment/Plan - Problem List (1) Diverticulitis of gastrointestinal tract Impression: 02/27 pt report her abdominal is better, no N/V/D will slow update her diet, today will add full liquid diet, will update as pt's tolerated continue antibiotics pt's WBC is down to the normal. pt can not tolerate regular food yet, will continue clear liquid diet per pt's request. continue antibiotics continue antiemtosis continue IVF of NS, precaution of fluid overload (2) Nausea & vomiting 02/27 resolved, no more better, continue PRN of antiemosis Continue to treat underlying cause of diverticulitis. continue IVF of NS (3) Urinary retention 02/27 d/c padgett, closely monitor pt's urine output stable, Continue padgett. (4) Restless leg syndrome stable, continue IV lorazepam PRN , that may also help with her restless legs. (5) COPD (chronic obstructive pulmonary disease) 02/27 pt is with hx of COPD continue Duoneb PRN O2 supplement as needed stable, continue duo-neb as needed continue supplement of O2 as needed (6) cough pt present cough with sputum, some SOB. Pt has hx of COPD CXR, will followup incentive spirometer sputum culture continue antibiotics let pt out of bed by nurse, safely walk may consider PT/OT if clinic not improved
[2018-02-27] MEDS: MORPHINE 2 MG/ML CARPUJECT IVP PRN (17:42)
[2018-02-27] MEDS ORDERED: BISACODYL 10 MG SUPP PR ONE (20:40)
[2018-02-27] MEDS: traZODone 50 MG TABLET PO SCH (20:47)
[2018-02-27] MEDS: guaiFENesin 600 MG TABLET PO SCH (20:47)
[2018-02-27] MEDS ORDERED: FAMOTIDINE 20 MG TABLET PO SCH (21:00)
[2018-02-28] MEDS: SODIUM CHLORIDE FLUSH 0.9% 10 ML SYRINGE IVP SCH ×3 (03:46→17:01)
[2018-02-28] MEDS: metroNIDAZOLE 500 MG/100 ML 500 MG/100 ML BAG IV SCH ×3 (03:46→19:49)
[2018-02-28] MEDS: LORazepam 2 MG/ML VIAL IVP PRN ×2 (04:22→16:03)
[2018-02-28] MEDS: IPRATROPIUM/ALBUTEROL 3 ML NEB INH PRN ×3 (04:25→15:01)
[2018-02-28 05:48] LABS: BASOPHILS % (AUTO) 0.2 %; EOSINOPHILS % (AUTO) 0.2 %; HGB - HEMOGLOBIN 10.8 g/dL (12.0-16.0); LYMPHOCYTES # (AUTO) 0.4 10^3/uL (1.5-3.5); MEAN CORPUSCULAR HEMOGLOBIN 29.2 pg (27.0-31.0); MEAN CORPUSCULAR HGB CONC 32.3 g/dL (32.0-36.0); MEAN CORPUSCULAR VOLUME 90.2 fL (81.0-99.0); MEAN PLATELET VOLUME 8.6 fL (7.9-10.8); MONOCYTES % (AUTO) 7.5 %; NEUTROPHILS # (AUTO) 11.4 10^3/uL (1.5-6.6); NEUTROPHILS % (AUTO) 89.1 %; PLT - PLATELET COUNT 188 10^3/uL (130-450); WHITE BLOOD COUNT 12.8 x10^3/uL (4.8-10.8)
[2018-02-28 05:59] LABS: ALBUMIN 2.7 g/dL (3.2-5.5); ALBUMIN/GLOBULIN RATIO 0.9 (1.0-2.2); BILIRUBIN,TOTAL 0.8 mg/dL (0.2-1.0); CALCIUM 8.1 mg/dL (8.5-10.3); CREATININE 0.8 mg/dL (0.4-1.0); TOTAL PROTEIN 5.8 g/dL (6.7-8.2)
[2018-02-28] MEDS: SACCHAROMYCES BOULARDII 250 MG CAPSULE PO SCH ×2 (08:09→17:01)
[2018-02-28] MEDS: CEFEPIME 2 GM in SODIUM CHLORIDE 0.9% MINIBAG 100 ML IV SCH ×2 (08:14→21:07)
[2018-02-28] MEDS: IPRATROPIUM/ALBUTEROL 3 ML NEB INH SCH ×2 (08:16→19:47)
[2018-02-28] MEDS ORDERED: BISACODYL 10 MG SUPP PR ONE (08:47)
[2018-02-28] MEDS: guaiFENesin 600 MG TABLET PO SCH ×2 (09:33→21:02)
[2018-02-28] MEDS: POLYETHYLENE GLYCOL 3350 17 GM PACKET PO SCH (09:37)
[2018-02-28] MEDS: DOCUSATE SODIUM 250 MG CAPSULE PO SCH (09:37)
[2018-02-28] MEDS: SENNA 8.6 MG TABLET PO SCH (09:37)
--- NOTE | 2018-02-28 15:33 | PROVIDER PROGRESS NOTE ---
Subjective - Prog Note Date Prog Note Date: 02/28/18 - Subjective Pt reports feeling: Improved Subjective: pt state she feel some better, no N/V/D, abdominal pain is controlled, but she still ate only about 30% his diet, and still weakness, present some difficult to eat because of hx of Zenker. Pt denies fever, chill, chest pain. Current Medications - Current Medications Current Medications: Active Medications Acetaminophen (Tylenol) 650 mg PO Q4HR PRN PRN Reason: Pain or Fever > 38C (100.4F) Albuterol/Ipratropium (Duoneb) 3 ml INH Q4HR PRN PRN Reason: Wheezing Last Admin: 02/28/18 15:01 Dose: 3 ml Albuterol/Ipratropium (Duoneb) 3 ml INH .RTBID [facility] Last Admin: 02/28/18 08:16 Dose: 3 ml Docusate Sodium (Colace 250mg Capsule) 250 - 500 mg PO DAILY [facility] Last Admin: 02/28/18 09:37 Dose: Not Given Enoxaparin Sodium (Lovenox) 40 mg SUBQ DAILY [facility] Guaifenesin (Robitussin Liquid) 100 mg PO Q6HR PRN PRN Reason: Cough Last Admin: 02/26/18 22:51 Dose: 100 mg Guaifenesin (Mucinex) 600 mg PO BID [facility] Last Admin: 02/28/18 09:33 Dose: 600 mg Metronidazole (Flagyl 500 Mg/100 Ml) 500 mg in 100 mls @ 100 mls/hr IV Q8H [facility] Last Infusion: 02/28/18 13:40 Dose: Infused Cefepime HCl 2 gm/ Sodium (Chloride) 100 mls @ 200 mls/hr IV Q12H [facility] Last Infusion: 02/28/18 08:45 Dose: Infused Acetaminophen (Ofirmev) 100 mls @ 400 mls/hr IV Q6HR PRN PRN Reason: PAIN Last Infusion: 02/25/18 20:36 Dose: Infused Lorazepam (Ativan Inj (Vial)) 1 mg IVP Q4H PRN PRN Reason: Anxiety Last Admin: 02/28/18 04:22 Dose: 1 mg Morphine Sulfate (Morphine (Carpuject)) 2 mg IVP Q2HR PRN PRN Reason: PAIN Last Admin: 02/27/18 17:42 Dose: 2 mg Ondansetron HCl (Zofran Inj) 4 mg IVP Q4HR PRN PRN Reason: Nausea / Vomiting Last Admin: 02/25/18 16:04 Dose: 4 mg Ondansetron HCl (Zofran Odt) 4 mg TL Q4HR PRN PRN Reason: Nausea / Vomiting Polyethylene Glycol (Miralax) 17 gm PO DAILY [facility] Last Admin: 02/28/18 09:37 Dose: Not Given Prochlorperazine Edisylate (Compazine Inj) 10 mg IVP Q4HR PRN PRN Reason: Nausea / Vomiting Last Admin: 02/25/18 19:47 Dose: 10 mg Prochlorperazine Maleate (Compazine Supp) 25 mg ND TID PRN PRN Reason: Nausea / Vomiting Saccharomyces Boulardii (Florastor) 250 mg PO BIDWM [facility] Senna (Senokot) 8.6 - 17.2 mg PO DAILY [facility] Last Admin: 02/28/18 09:37 Dose: Not Given Simethicone (Mylicon) 80 mg PO 0900,1300,1800,2100 PRN PRN Reason: Gas Last Admin: 02/26/18 18:23 Dose: 80 mg Sodium Chloride (Normal Saline Flush 0.9%) 10 ml IVP PRN PRN PRN Reason: NEEDED PER PROVIDER ORDERS Last Admin: 02/26/18 19:17 Dose: 10 ml Sodium Chloride (Normal Saline Flush 0.9%) 10 ml IVP 0100,0900,1700 [facility] Last Admin: 02/28/18 09:38 Dose: Not Given Trazodone HCl (Desyrel) 50 mg PO QPM [facility] Last Admin: 02/27/18 20:47 Dose: Not Given Albuterol Sulfate [Proair Hfa Inhaler] 2 puffs INH BID 02/24/18 Docusate Sodium 100 mg PO Q2D 02/24/18 Multivitamin [Theragran] 1 tab PO DAILY 02/24/18 diphenhydrAMINE HCl [Diphenhydramine HCl] 12.5 mg PO QPM 02/24/18 Objective - Vital Signs/Intake & Output Reviewed Vital Signs: Yes Vital Signs: Vital Signs x48h Temp Pulse Pulse Resp BP Pulse Ox 02/28/18 15:01 90 20 02/28/18 10:59 84 22 02/28/18 08:19 90 20 02/28/18 08:11 36.6 C 02/28/18 07:47 38.4 C H 83 24 127/50 L 93 Intake & Output: Intake & Output 02/25/18 02/26/18 02/27/18 02/28/18 23:59 23:59 23:59 23:59 Intake Total 2850.00 2446.250 2985.00 870 Output Total 635 750 575 200 Balance 2215.00 1129.007 4273.00 670 - Objective General Appearance: positive: No acute distress, Alert. negative: Lethargic Eyes Bilateral: positive: Normal inspection, PERRL, No lid inflammation, Conjunctivae nml ENT: positive: ENT inspection nml, Pharynx nml, No signs of dehydration. negative: Purulent nasal drainage, Pharyngeal erythema, Oral lesions Neck: positive: Nml inspection, Thyroid nml, No JVD, Trachea midline. negative: Thyromegaly, Lymphadenopathy (R), Lymphadenopathy (L), Stiff neck, Swelling/bruising, Tracheal deviation Respiratory: positive: Chest non-tender, No respiratory distress. negative: Wheezes, Rales Cardiovascular: positive: Regular rate & rhythm, No murmur, No gallop. negative: Irregularly irregular, Extrasystoles, Tachycardia, Bradycardia, JVD present, Systolic murmur, Diastolic murmur Peripheral Pulses: 2+ Radial (R), 2+ Radial (L), 2+ Dorsalis pedis (R), 2+ Dorsalis pedis (L) Abdomen: positive: Non-tender, No organomegaly, Nml bowel sounds, No distention. negative: Tenderness, Guarding, Rebound Back: positive: Nml inspection. negative: CVA tenderness (R), CVA tenderness (L) Skin: positive: Color nml, No rash, Warm, Dry. negative: Cyanosis, Diaphoresis, Pallor Extremities: positive: Non-tender, Full ROM, Nml appearance. negative: Calf tenderness, Joint swelling, Bill's sign/cords Neurologic/Psychiatric: positive: Oriented x3, Sensation nml. negative: Weakness, Sensory loss, Facial droop, Slurred/abnml speech, Depressed mood/affect - Lab Results Fish Bones: 02/28/18 05:30 02/28/18 05:30 Other Labs: Lab Results x24hrs 02/28/18 02/28/18 Range/Units 05:30 05:30 WBC 12.8 H (4.8-10.8) x10^3/uL RBC 3.70 L (4.20-5.40) 10^6/uL Hgb 10.8 L (12.0-16.0) g/dL Hct 33.4 L (37.0-47.0) % MCV 90.2 (81.0-99.0) fL MCH 29.2 (27.0-31.0) pg MCHC 32.3 (32.0-36.0) g/dL RDW 14.0 (12.0-15.0) % Plt Count 188 (130-450) 10^3/uL MPV 8.6 (7.9-10.8) fL Neut # (Auto) 11.4 H (1.5-6.6) 10^3/uL Lymph # (Auto) 0.4 L (1.5-3.5) 10^3/uL [place] # (Auto) 1.0 (0.0-1.0) 10^3/uL Eos # (Auto) 0.0 (0.0-0.7) 10^3/uL Baso # (Auto) 0.0 (0.0-0.1) 10^3/uL Absolute Nucleated RBC 0.01 x10^3/uL Nucleated RBC % 0.1 /100WBC Sodium 138 (135-145) mmol/L Potassium 3.5 (3.5-5.0) mmol/L Chloride 111 (101-111) mmol/L Carbon Dioxide 21 (21-32) mmol/L Anion Gap 6.0 (6-13) BUN 12 (6-20) mg/dL Creatinine 0.8 (0.4-1.0) mg/dL Estimated GFR (MDRD) 68 L (>89) Glucose 123 H (70-100) mg/dL Calcium 8.1 L (8.5-10.3) mg/dL Magnesium 2.0 (1.7-2.8) mg/dL Total Bilirubin 0.8 (0.2-1.0) mg/dL AST 22 (10-42) IU/L ALT 11 (10-60) IU/L Alkaline Phosphatase 62 (42-121) IU/L Total Protein 5.8 L (6.7-8.2) g/dL Albumin 2.7 L (3.2-5.5) g/dL Globulin 3.1 (2.1-4.2) g/dL Albumin/Globulin Ratio 0.9 L (1.0-2.2) ABX Reporting Has patient been on IV antibiotics over the past 48 hours?: Yes Sepsis Event Note (H) - Evaluation Current Stage of Sepsis: Ruled out Assessment/Plan - Problem List (1) Diverticulitis of gastrointestinal tract Impression: 02/28 pt report he pain is controlled, no N/V/D continue antibiotics 02/27 pt report her abdominal is better, no N/V/D will slow update her diet, today will add full liquid diet, will update as pt's tolerated continue antibiotics pt's WBC is down to the normal. pt can not tolerate regular food yet, will continue clear liquid diet per pt's request. continue antibiotics continue antiemtosis continue IVF of NS, precaution of fluid overload (2) Nausea & vomiting 02/27 resolved, no more better, continue PRN of antiemosis Continue to treat underlying cause of diverticulitis. continue IVF of NS (3) Urinary retention 02/27 d/c padgett, closely monitor pt's urine output stable, Continue padgett. (4) Restless leg syndrome stable, continue IV lorazepam PRN , that may also help with her restless legs. (5) COPD (chronic obstructive pulmonary disease) 02/27 pt is with hx of COPD continue Duoneb PRN O2 supplement as needed stable, continue duo-neb as needed continue supplement of O2 as needed (6) cough pt present cough with sputum, some SOB. Pt has hx of COPD CXR, will followup incentive spirometer sputum culture continue antibiotics let pt out of bed by nurse, safely walk may consider PT/OT if clinic not improved (7) generalized weakness pt present generalized weakness PT/OT consult, will followup (8) hx of Zenker's diverticulum with dysphagia consult with ST aspiration precaution
[2018-02-28] MEDS ORDERED: ALBUTEROL NEB 2.5 MG/3 ML INH PRN (15:47)
[2018-02-28 16:31] LABS: BILIRUBIN,URINE NEGATIVE (NEGATIVE); GLUCOSE, URINE (UA) NEGATIVE (NEGATIVE); KETONES,URINE (UA) 15 mg/dL (NEGATIVE); LEUKOCYTE ESTERASE, URINE NEGATIVE (NEGATIVE); NITRITE,URINE NEGATIVE (NEGATIVE); OCCULT BLOOD,URINE SMALL (NEGATIVE); PH,URINE 5.5 PH (5.0-7.5); PROTEIN,URINE 30 mg/dL (NEGATIVE); UROBILINOGEN,URINE 0.2 (NORMAL) E.U./dL (NORMAL)
[2018-02-28 16:36] LABS: CLARITY,URINE CLOUDY (CLEAR)
[2018-02-28 17:13] LABS: BACTERIA,URINE Few /HPF (None Seen); MUCUS,URINE Few Strands; RBC,URINE 0-5 /HPF (0-5); SQUAMOUS EPITHELIAL CELL,UR FEW Squamous (<= Few)
[2018-02-28] MEDS: traZODone 50 MG TABLET PO SCH (21:02)
[2018-02-28] MEDS ORDERED: SCOPOLAMINE PATCH TOP SCH (22:00)
[2018-03-01] MEDS: LORazepam 2 MG/ML VIAL IVP PRN ×2 (03:27→12:59)
[2018-03-01] MEDS: SODIUM CHLORIDE FLUSH 0.9% 10 ML SYRINGE IVP PRN ×3 (03:30→12:59)
[2018-03-01] MEDS: metroNIDAZOLE 500 MG/100 ML 500 MG/100 ML BAG IV SCH (03:31)
[2018-03-01] MEDS: SODIUM CHLORIDE FLUSH 0.9% 10 ML SYRINGE IVP SCH ×3 (03:31→16:30)
[2018-03-01 05:23] LABS: BASOPHILS % (AUTO) 0.3 %; EOSINOPHILS # (AUTO) 0.1 10^3/uL (0.0-0.7); EOSINOPHILS % (AUTO) 1.1 %; HGB - HEMOGLOBIN 10.7 g/dL (12.0-16.0); LYMPHOCYTES # (AUTO) 0.6 10^3/uL (1.5-3.5); LYMPHOCYTES % (AUTO) 4.4 %; MEAN CORPUSCULAR HGB CONC 32.8 g/dL (32.0-36.0); MEAN CORPUSCULAR VOLUME 88.6 fL (81.0-99.0); MEAN PLATELET VOLUME 8.8 fL (7.9-10.8); MONOCYTES # (AUTO) 1.2 10^3/uL (0.0-1.0); NEUTROPHILS # (AUTO) 11.4 10^3/uL (1.5-6.6); NEUTROPHILS % (AUTO) 85.2 %; PLT - PLATELET COUNT 208 10^3/uL (130-450); RED BLOOD COUNT 3.69 10^6/uL (4.20-5.40); RED CELL DISTRIBUTION WIDTH 13.7 % (12.0-15.0); WHITE BLOOD COUNT 13.4 x10^3/uL (4.8-10.8)
[2018-03-01 05:27] LABS: ALBUMIN 2.5 g/dL (3.2-5.5); ALBUMIN/GLOBULIN RATIO 0.8 (1.0-2.2); BILIRUBIN,TOTAL 0.6 mg/dL (0.2-1.0); CALCIUM 8.2 mg/dL (8.5-10.3); CREATININE 0.8 mg/dL (0.4-1.0); TOTAL PROTEIN 5.8 g/dL (6.7-8.2)
[2018-03-01] MEDS: IPRATROPIUM/ALBUTEROL 3 ML NEB INH SCH ×2 (07:45→20:27)
[2018-03-01] MEDS: CEFEPIME 2 GM in SODIUM CHLORIDE 0.9% MINIBAG 100 ML IV SCH (08:37)
[2018-03-01] MEDS ORDERED: POTASSIUM CHLORIDE INJ 40 MEQ in SODIUM CHLORIDE 0.9% 480 ML IV ONE (09:15)
--- NOTE | 2018-03-01 09:24 | XRAY Report ---
Reason: cough, SOB Procedure Date: 03/01/2018 Accession Number: [id number] / [id number] Procedure: XR - Chest 1 View X-Ray CPT Code: 33806 FULL RESULT: EXAM: CHEST RADIOGRAPHY EXAM DATE: 03/01/2018 07:56 AM. CLINICAL HISTORY: Cough, SOB. COMPARISON: None. TECHNIQUE: 1 view. FINDINGS: There is hypoexpansion of the lungs. There is redemonstration of a right hilar infiltrate. It demonstrates interval increase in size when compared to the previous study. A new right pleural effusion is noted. Increased lung markings are noted in the left lung base that may represent infiltrate or atelectasis. No pneumothorax is seen. There is atherosclerosis of the aorta. IMPRESSION: Interval increase in size of the right perihilar infiltrate. New right pleural effusion. Increased lung markings in the left lung base that may represent an infiltrate or atelectasis. RADIA
[2018-03-01] MEDS ORDERED: FUROSEMIDE 20 MG TABLET PO SCH (11:00)
[2018-03-01] MEDS ORDERED: PIPERACILLIN/TAZOBACTAM 3.375 GM in SODIUM CHLORIDE 0.9% MINIBAG 100 ML IV SCH (11:00)
[2018-03-01] MEDS ORDERED: FLUCONAZOLE 100 MG TABLET PO SCH (11:00)
--- NOTE | 2018-03-01 11:07 | ADVANCE CARE PLANNING NOTE ---
Advance Care Planning - Date/Time Date: 03/01/18 Time: 16:05 - Purpose of encounter Text: advance care - Parties in attendance Parties in attendance: pt, pt's daughter, me - Decisional capacity Decisional capacity of: pt has capacity to make the decision - Subjective/Patient's story Subjective/Patient's story: pt and her daughter request palliative care. pt is very difficult to eat any thing and pt has aspiration pneumonia, pt has zenker - Objective/Medical story Objective/Medical Story: generalized weakness, dysphagia, zenker's diverticulum, diverticulitis, aspiration pneumonia - Goals of Care Goals of care determinations: advance care for pt - Plan Plan: pt and her daughter request to have palliative care. palliative care is consulted - Time Spent on Advance Care Planning Time spent on advance care plannin
[2018-03-01] MEDS: SACCHAROMYCES BOULARDII 250 MG CAPSULE PO SCH ×2 (12:32→19:00)
[2018-03-01] MEDS: DOCUSATE SODIUM 250 MG CAPSULE PO SCH (12:33)
[2018-03-01] MEDS: guaiFENesin 600 MG TABLET PO SCH ×2 (12:36→20:33)
[2018-03-01] MEDS: POLYETHYLENE GLYCOL 3350 17 GM PACKET PO SCH (12:37)
[2018-03-01] MEDS: SENNA 8.6 MG TABLET PO SCH (12:37)
[2018-03-01] MEDS: ENOXAPARIN 40 MG/0.4 ML SYRINGE SUBQ SCH (12:49)
--- NOTE | 2018-03-01 13:33 | PROVIDER PROGRESS NOTE ---
Subjective - Prog Note Date Prog Note Date: 03/01/18 - Subjective Pt reports feeling: No change Subjective: pt state she has strong cough when she swallows any thing. pt denies abdominal pain, no nausea/vomiting. pt denies chest pain, fever, chill. Pt has hx of Zenker's diverticulum. I consulted with our surgeon Dr.John Betancourt for pt's difficult swallow. Dr. Betancourt said he will consult for pt. Current Medications - Current Medications Current Medications: Active Medications Acetaminophen (Tylenol) 650 mg PO Q4HR PRN PRN Reason: Pain or Fever > 38C (100.4F) Albuterol () 2.5 mg INH RTQ4H PRN PRN Reason: Wheezing Albuterol/Ipratropium (Duoneb) 3 ml INH Q4HR PRN PRN Reason: Wheezing Last Admin: 03/01/18 15:00 Dose: 3 ml Albuterol/Ipratropium (Duoneb) 3 ml INH .RTBID [facility] Last Admin: 03/01/18 07:45 Dose: 3 ml Docusate Sodium (Colace 250mg Capsule) 250 - 500 mg PO DAILY [facility] Last Admin: 03/01/18 12:33 Dose: Not Given Enoxaparin Sodium (Lovenox) 40 mg SUBQ DAILY [facility] Last Admin: 03/01/18 12:49 Dose: 40 mg Fluconazole (Diflucan) 100 mg PO DAILY [facility] Last Admin: 03/01/18 15:01 Dose: Not Given Furosemide (Lasix Inj 20mg Vial) 20 mg IVP DAILY [facility] Guaifenesin (Robitussin Liquid) 100 mg PO Q6HR PRN PRN Reason: Cough Last Admin: 02/26/18 22:51 Dose: 100 mg Guaifenesin (Mucinex) 600 mg PO BID [facility] Last Admin: 03/01/18 12:36 Dose: Not Given Acetaminophen (Ofirmev) 100 mls @ 400 mls/hr IV Q6HR PRN PRN Reason: PAIN Last Infusion: 02/25/18 20:36 Dose: Infused Vancomycin HCl 1 gm/ Sodium (Chloride) 250 mls @ 167 mls/hr IV Q12H [facility] Last Infusion: 03/01/18 15:56 Dose: Infused Piperacillin Sod/Tazobactam (Sod 3.375 gm/ Sodium Chloride) 100 mls @ 200 mls/hr IV Q6H [facility] Lorazepam (Ativan Inj (Vial)) 1 mg IVP Q4H PRN PRN Reason: Anxiety Last Admin: 03/01/18 12:59 Dose: 1 mg Morphine Sulfate (Morphine (Carpuject)) 2 mg IVP Q2HR PRN PRN Reason: PAIN Last Admin: 02/27/18 17:42 Dose: 2 mg Ondansetron HCl (Zofran Inj) 4 mg IVP Q4HR PRN PRN Reason: Nausea / Vomiting Last Admin: 02/25/18 16:04 Dose: 4 mg Ondansetron HCl (Zofran Odt) 4 mg TL Q4HR PRN PRN Reason: Nausea / Vomiting Polyethylene Glycol (Miralax) 17 gm PO DAILY [facility] Last Admin: 03/01/18 12:37 Dose: Not Given Prochlorperazine Edisylate (Compazine Inj) 10 mg IVP Q4HR PRN PRN Reason: Nausea / Vomiting Last Admin: 02/25/18 19:47 Dose: 10 mg Prochlorperazine Maleate (Compazine Supp) 25 mg MA TID PRN PRN Reason: Nausea / Vomiting Saccharomyces Boulardii (Florastor) 250 mg PO BIDWM [facility] Last Admin: 03/01/18 12:32 Dose: Not Given Scopolamine HBr (Transderm-Scop) 1 patch TOP Q3D [facility] Last Admin: 02/28/18 21:34 Dose: 1 patch Senna (Senokot) 8.6 - 17.2 mg PO DAILY [facility] Last Admin: 03/01/18 12:37 Dose: Not Given Simethicone (Mylicon) 80 mg PO 0900,1300,1800,2100 PRN PRN Reason: Gas Last Admin: 02/26/18 18:23 Dose: 80 mg Sodium Chloride (Normal Saline Flush 0.9%) 10 ml IVP PRN PRN PRN Reason: NEEDED PER PROVIDER ORDERS Last Admin: 03/01/18 12:59 Dose: 10 ml Sodium Chloride (Normal Saline Flush 0.9%) 10 ml IVP 0100,0900,1700 [facility] Last Admin: 03/01/18 13:00 Dose: 10 ml Trazodone HCl (Desyrel) 50 mg PO QPM [facility] Last Admin: 02/28/18 21:02 Dose: Not Given Albuterol Sulfate [Proair Hfa Inhaler] 2 puffs INH BID 02/24/18 Docusate Sodium 100 mg PO Q2D 02/24/18 Multivitamin [Theragran] 1 tab PO DAILY 02/24/18 diphenhydrAMINE HCl [Diphenhydramine HCl] 12.5 mg PO QPM 02/24/18 Objective - Vital Signs/Intake & Output Reviewed Vital Signs: Yes Vital Signs: Vital Signs x48h Temp Pulse Pulse Pulse Resp Resp BP 03/01/18 10:30 115 H 18 03/01/18 07:45 105 H 20 03/01/18 07:37 36.9 C 107 H 28 H 148/72 H BP Pulse Ox Pulse Ox 03/01/18 10:30 145/79 H 92 03/01/18 07:45 03/01/18 07:37 92 Intake & Output: Intake & Output 02/26/18 02/27/18 02/28/18 03/01/18 23:59 23:59 23:59 23:59 Intake Total 2446.250 2985.00 1388 500 Output Total 750 575 200 200 Balance 5054.351 6396.00 1188 300 - Objective General Appearance: positive: No acute distress, Alert. negative: Lethargic Eyes Bilateral: positive: Normal inspection, PERRL, No lid inflammation, Conjunctivae nml ENT: positive: ENT inspection nml, Pharynx nml, No signs of dehydration. negative: Purulent nasal drainage, Pharyngeal erythema, Oral lesions Neck: positive: Nml inspection, Thyroid nml, No JVD, Trachea midline. negative: Thyromegaly, Lymphadenopathy (R), Lymphadenopathy (L), Stiff neck, Swelling/bruising, Tracheal deviation Respiratory: positive: Chest non-tender, No respiratory distress. negative: Wheezes, Rales Cardiovascular: positive: Regular rate & rhythm, No murmur, No gallop. negative: Irregularly irregular, Extrasystoles, Tachycardia, Bradycardia, JVD present, Systolic murmur, Diastolic murmur Peripheral Pulses: 2+ Radial (R), 2+ Radial (L), 2+ Dorsalis pedis (R), 2+ Dorsalis pedis (L) Abdomen: positive: Non-tender, No organomegaly, Nml bowel sounds, No distention. negative: Tenderness, Guarding, Rebound Back: positive: Nml inspection. negative: CVA tenderness (R), CVA tenderness (L) Skin: positive: Color nml, No rash, Warm, Dry. negative: Cyanosis, Diaphoresis, Pallor Extremities: positive: Non-tender, Full ROM, Nml appearance. negative: Calf tenderness, Joint swelling, Bill's sign/cords Neurologic/Psychiatric: positive: Sensation nml, Mood/affect nml. negative: Weakness, Sensory loss, Facial droop, Slurred/abnml speech, Depressed mood/affect - Lab Results Fish Bones: 03/01/18 04:40 03/01/18 04:40 Other Labs: Lab Results x24hrs 03/01/18 03/01/18 02/28/18 Range/Units 04:40 04:40 10:00 WBC 13.4 H (4.8-10.8) x10^3/uL RBC 3.69 L (4.20-5.40) 10^6/uL Hgb 10.7 L (12.0-16.0) g/dL Hct 32.7 L (37.0-47.0) % MCV 88.6 (81.0-99.0) fL MCH 29.0 (27.0-31.0) pg MCHC 32.8 (32.0-36.0) g/dL RDW 13.7 (12.0-15.0) % Plt Count 208 (130-450) 10^3/uL MPV 8.8 (7.9-10.8) fL Neut # (Auto) 11.4 H (1.5-6.6) 10^3/uL Lymph # (Auto) 0.6 L (1.5-3.5) 10^3/uL [place] # (Auto) 1.2 H (0.0-1.0) 10^3/uL Eos # (Auto) 0.1 (0.0-0.7) 10^3/uL Baso # (Auto) 0.0 (0.0-0.1) 10^3/uL Absolute Nucleated RBC 0.00 x10^3/uL Nucleated RBC % 0.0 /100WBC Sodium 144 (135-145) mmol/L Potassium 3.1 L (3.5-5.0) mmol/L Chloride 112 H (101-111) mmol/L Carbon Dioxide 23 (21-32) mmol/L Anion Gap 9.0 (6-13) BUN 15 (6-20) mg/dL Creatinine 0.8 (0.4-1.0) mg/dL Estimated GFR (MDRD) 68 L (>89) Glucose 112 H (70-100) mg/dL Calcium 8.2 L (8.5-10.3) mg/dL Total Bilirubin 0.6 (0.2-1.0) mg/dL AST 19 (10-42) IU/L ALT 12 (10-60) IU/L Alkaline Phosphatase 62 (42-121) IU/L Total Protein 5.8 L (6.7-8.2) g/dL Albumin 2.5 L (3.2-5.5) g/dL Globulin 3.3 (2.1-4.2) g/dL Albumin/Globulin Ratio 0.8 L (1.0-2.2) Urine Color YELLOW Urine Clarity CLOUDY (CLEAR) Urine pH 5.5 (5.0-7.5) PH Ur Specific [place] >=1.030 H (1.002-1.030) Urine Protein 30 H (NEGATIVE) mg/dL Urine Glucose (UA) NEGATIVE (NEGATIVE) mg/dL Urine Ketones 15 H (NEGATIVE) mg/dL Urine Occult Blood SMALL H (NEGATIVE) Urine Nitrite NEGATIVE (NEGATIVE) Urine Bilirubin NEGATIVE (NEGATIVE) Urine Urobilinogen 0.2 (NORMAL) (NORMAL) E.U./dL Ur Leukocyte Esterase NEGATIVE (NEGATIVE) Urine RBC 0-5 (0-5) /HPF Urine WBC 0-3 (0-5) /HPF Ur Squamous Epith Cells FEW Squamous (<= Few) Urine Bacteria Few (None Seen) /HPF Urine Casts 3-5 Hyaline Casts /LPF Urine Mucus Few Strands Ur Microscopic Review INDICATED Urine Culture Comments NOT INDICATED ABX Reporting Has patient been on IV antibiotics over the past 48 hours?: Yes Sepsis Event Note (H) - Evaluation Current Stage of Sepsis: Ruled out Assessment/Plan - Problem List (1) Diverticulitis of gastrointestinal tract Impression: 03/01 pt denies abdominal pain, no N/V/D. it seems diverticulitis is controlled continue with Zosyn when pt is in the hospital 02/28 pt report he pain is controlled, no N/V/D continue antibiotics 02/27 pt report her abdominal is better, no N/V/D will slow update her diet, today will add full liquid diet, will update as pt's tolerated continue antibiotics pt's WBC is down to the normal. pt can not tolerate regular food yet, will continue clear liquid diet per pt's request. continue antibiotics continue antiemtosis continue IVF of NS, precaution of fluid overload (2) dysphagia, hx of Zenker diverticulum cough when pt swallow anything. pt has hx of Zenker diverticulum consult with surgeon Dr. Shaun Betancourt D5 1/2NS with 40 mequ at 50cc/h, pt has hypokalemia k is 3.1 today (3) pneumonia pt has elevated WBC, decreased sats, cough with swallowing, CXR reveal pneumonia. it seems aspiration pneumonia treat with antibiotics, Zosyn and Vanco INH treatment as needed supplement O2 as needed (4) Nausea & vomiting 03/01 no more N/V 02/27 resolved, no more better, continue PRN of antiemosis Continue to treat underlying cause of diverticulitis. continue IVF of NS (5) Urinary retention 02/27 d/c padgett, closely monitor pt's urine output stable, Continue padgett. (6) Restless leg syndrome stable, continue IV lorazepam PRN , that may also help with her restless legs. (7) COPD (chronic obstructive pulmonary disease) 03/01 pt hx of COPD, now has pneumonia continue Duoneb PRN O2 supplement as needed treat with antibiotics 02/27 pt is with hx of COPD continue Duoneb PRN O2 supplement as needed stable, continue duo-neb as needed continue supplement of O2 as needed (8) generalized weakness 03/01 continue PT/OT pt present generalized weakness PT/OT consult, will followup (9) palliative care pt and pt's daughter like to palliative care consulted and called Susan Davis, she will see pt on coming Sunday.
[2018-03-01] MEDS: VANCOMYCIN INJ 1 GM in SODIUM CHLORIDE 0.9% 250 ML IV SCH (13:50)
[2018-03-01] MEDS: IPRATROPIUM/ALBUTEROL 3 ML NEB INH PRN (15:00)
[2018-03-01] MEDS: FUROSEMIDE 20 MG/2 ML VIAL IVP SCH (16:29)
[2018-03-01] MEDS ORDERED: IOPAMIDOL-300 100 ML VIAL ONE (18:01)
[2018-03-01] MEDS ORDERED: IOPAMIDOL-300 100 ML VIAL IVP ONE (18:20)
[2018-03-01] MEDS ORDERED: LIDOCAINE PATCH 5% TOP PRN (18:45)
[2018-03-01] MEDS: PIPERACILLIN/TAZOBACTAM 3.375 GM in SODIUM CHLORIDE 0.9% MINIBAG 100 ML IV SCH (18:59)
[2018-03-01] MEDS: FLUCONAZOLE 100 MG TABLET PO SCH (19:00)
--- NOTE | 2018-03-01 20:36 | CT Report ---
Reason: SOB Procedure Date: 03/01/2018 Accession Number: [id number] / [id number] Procedure: CT - Chest W/ CPT Code: FULL RESULT: EXAM: CT CHEST EXAM DATE: 03/01/2018 06:30 PM. CLINICAL HISTORY: SOB. COMPARISONS: CHEST W/ 11/09/2014 3:10 PM CHEST 1 VIEW 03/01/2018 7:43 AM CHEST W/ 01/18/2015 3:29 PM. TECHNIQUE: Routine helical CT imaging was performed through the chest. IV contrast: 80 cc Isovue-300. Reconstructions: Coronal and sagittal. In accordance with CT protocol optimization, one or more of the following dose reduction techniques were utilized for this exam: automated exposure control, adjustment of mA and/or KV based on patient size, or use of iterative reconstructive technique. FINDINGS: Lungs/Pleura: There is minimal pleural fluid right greater than left, new. No distinct pleural based masses. No pneumothorax. There is progressive moderate bandlike consolidation suggesting scarring in the basilar lower lobes bilaterally. Right middle lobe volume loss persists, although platelike atelectasis is decreased from before. There is a new or newly visible 1.4 cm nodular focus inferiorly in the right middle lobe in an area of previous consolidation. There is a 9 mm noncalcified nodule in the posterior basal right lower lobe (4/36), previously 5 mm. There is new groundglass and reticular opacity which is mild at the bilateral lung apices. There is mild bandlike opacity suggesting scarring laterally in the right upper lobe. No emphysema. No central bronchial obstruction or bronchiectasis. Mediastinum: Heart size normal. Central ulnar arteries are normal in size. Mild calcification of the normal caliber thoracic aorta. 2.8 cm mildly heterogeneous hypervascular mass in the mid right thyroid lobe, similar to before. Gas in the proximal to mid esophagus without abnormal dilation. Mild subcarinal and bilateral hilar lymphadenopathy, mildly increased from before. Bones: Mild mid thoracic kyphosis. Mild diffuse idiopathic skeletal hyperostosis in the mid thoracic spine. No lytic or sclerotic lesions. 2 cm intraosseous hemangioma left anteriorly at T10 vertebral body. Visualized Abdomen: Unremarkable. Other: Chest wall unremarkable. IMPRESSION: 1. Moderate bandlike opacities suggesting fibrosis in the bilateral lung bases with lesser degrees of bandlike scarring in other portions of both lungs. Platelike atelectasis decreased in the right middle lobe, although a 1.4 cm nodular focus is now visible where previously there was lung consolidation. Enlarging 9 mm nodule in the posterior basal right lower lobe. These findings could be post infectious. Postinflammatory process such as sarcoidosis is a possibility, although the distribution is not classic. Metastatic disease with a lymphangitic component could give this appearance. 2. New/increased mild mediastinal and bilateral hilar lymphadenopathy which could be neoplastic or inflammatory. 3. 2.8 cm mid pole right thyroid mass, as before with an adenoma versus carcinoma. RADIA
[2018-03-01] MEDS: POTASSIUM CHLORIDE INJ 40 MEQ in DEXTROSE 5%-0.45% NACL 980 ML IV SCH (22:50)
[2018-03-02] MEDS: PIPERACILLIN/TAZOBACTAM 3.375 GM in SODIUM CHLORIDE 0.9% MINIBAG 100 ML IV SCH ×4 (00:08→18:57)
[2018-03-02] MEDS: SODIUM CHLORIDE FLUSH 0.9% 10 ML SYRINGE IVP SCH ×4 (00:11→23:37)
[2018-03-02] MEDS: VANCOMYCIN INJ 1 GM in SODIUM CHLORIDE 0.9% 250 ML IV SCH ×2 (00:45→12:36)
[2018-03-02] MEDS: SODIUM CHLORIDE FLUSH 0.9% 10 ML SYRINGE IVP PRN (05:45)
[2018-03-02] MEDS: MORPHINE 2 MG/ML CARPUJECT IVP PRN (06:19)
[2018-03-02 06:42] LABS: BASOPHILS % (AUTO) 0.4 %; EOSINOPHILS # (AUTO) 0.4 10^3/uL (0.0-0.7); EOSINOPHILS % (AUTO) 3.3 %; HGB - HEMOGLOBIN 10.9 g/dL (12.0-16.0); LYMPHOCYTES # (AUTO) 0.7 10^3/uL (1.5-3.5); LYMPHOCYTES % (AUTO) 6.9 %; MEAN CORPUSCULAR HEMOGLOBIN 29.7 pg (27.0-31.0); MEAN CORPUSCULAR HGB CONC 33.6 g/dL (32.0-36.0); MEAN CORPUSCULAR VOLUME 88.2 fL (81.0-99.0); MEAN PLATELET VOLUME 8.3 fL (7.9-10.8); MONOCYTES # (AUTO) 1.1 10^3/uL (0.0-1.0); MONOCYTES % (AUTO) 10.3 %; NEUTROPHILS # (AUTO) 8.6 10^3/uL (1.5-6.6); NEUTROPHILS % (AUTO) 79.1 %; PLT - PLATELET COUNT 245 10^3/uL (130-450); RED BLOOD COUNT 3.68 10^6/uL (4.20-5.40); RED CELL DISTRIBUTION WIDTH 13.8 % (12.0-15.0); WHITE BLOOD COUNT 10.8 x10^3/uL (4.8-10.8)
[2018-03-02 07:01] LABS: ALBUMIN 2.6 g/dL (3.2-5.5); ALBUMIN/GLOBULIN RATIO 0.8 (1.0-2.2); BILIRUBIN,TOTAL 0.5 mg/dL (0.2-1.0); CALCIUM 8.1 mg/dL (8.5-10.3); CREATININE 0.9 mg/dL (0.4-1.0); TOTAL PROTEIN 5.9 g/dL (6.7-8.2)
[2018-03-02] MEDS: IPRATROPIUM/ALBUTEROL 3 ML NEB INH SCH ×2 (07:21→20:21)
[2018-03-02] MEDS ORDERED: POTASSIUM CHLORIDE INJ 40 MEQ in SODIUM CHLORIDE 0.9% 480 ML IV ONE (07:42)
[2018-03-02] MEDS: FUROSEMIDE 20 MG/2 ML VIAL IVP SCH (08:03)
[2018-03-02] MEDS: guaiFENesin 600 MG TABLET PO SCH ×2 (08:03→22:11)
[2018-03-02] MEDS: ENOXAPARIN 40 MG/0.4 ML SYRINGE SUBQ SCH (08:03)
[2018-03-02] MEDS: SENNA 8.6 MG TABLET PO SCH (08:03)
[2018-03-02] MEDS: SACCHAROMYCES BOULARDII 250 MG CAPSULE PO SCH ×2 (08:03→17:15)
[2018-03-02] MEDS: FLUCONAZOLE 100 MG TABLET PO SCH (08:03)
[2018-03-02] MEDS: POLYETHYLENE GLYCOL 3350 17 GM PACKET PO SCH (08:04)
[2018-03-02] MEDS: DOCUSATE SODIUM 250 MG CAPSULE PO SCH (08:24)
[2018-03-02] MEDS ORDERED: FUROSEMIDE 20 MG/2 ML VIAL IVP SCH (09:00)
--- NOTE | 2018-03-02 13:00 | PROVIDER PROGRESS NOTE ---
Subjective - Prog Note Date Prog Note Date: 03/02/18 - Subjective Pt reports feeling: Improved Subjective: pt state she feel better. nurse report her appetite has great improved, she ate about her 75% diet without cough! pt still present generalized weakness, pt still present hypoxia, now she has 92% sats on 3 liter of O2. Pt wait for replacement. Current Medications - Current Medications Current Medications: Active Medications Acetaminophen (Tylenol) 650 mg PO Q4HR PRN PRN Reason: Pain or Fever > 38C (100.4F) Albuterol () 2.5 mg INH RTQ4H PRN PRN Reason: Wheezing Last Admin: 03/02/18 03:07 Dose: 2.5 mg Albuterol/Ipratropium (Duoneb) 3 ml INH Q4HR PRN PRN Reason: Wheezing Last Admin: 03/01/18 15:00 Dose: 3 ml Albuterol/Ipratropium (Duoneb) 3 ml INH .RTBID [facility] Last Admin: 03/02/18 07:21 Dose: 3 ml Docusate Sodium (Colace 250mg Capsule) 250 - 500 mg PO DAILY [facility] Last Admin: 03/02/18 08:24 Dose: 250 mg Enoxaparin Sodium (Lovenox) 40 mg SUBQ DAILY [facility] Last Admin: 03/02/18 08:03 Dose: 40 mg Fluconazole (Diflucan) 100 mg PO DAILY [facility] Last Admin: 03/02/18 08:03 Dose: 100 mg Furosemide (Lasix Inj 20mg Vial) 20 mg IVP DAILY [facility] Last Admin: 03/02/18 08:03 Dose: 20 mg Guaifenesin (Robitussin Liquid) 100 mg PO Q6HR PRN PRN Reason: Cough Last Admin: 02/26/18 22:51 Dose: 100 mg Guaifenesin (Mucinex) 600 mg PO BID [facility] Last Admin: 03/02/18 08:03 Dose: 600 mg Acetaminophen (Ofirmev) 100 mls @ 400 mls/hr IV Q6HR PRN PRN Reason: PAIN Last Infusion: 02/25/18 20:36 Dose: Infused Vancomycin HCl 1 gm/ Sodium (Chloride) 250 mls @ 167 mls/hr IV Q12H [facility] Last Infusion: 03/02/18 14:06 Dose: Infused Piperacillin Sod/Tazobactam (Sod 3.375 gm/ Sodium Chloride) 100 mls @ 200 mls/hr IV Q6H [facility] Last Infusion: 03/02/18 12:28 Dose: Infused Potassium Chloride 40 meq/ (Dextrose/Sodium Chloride) 1,000 mls @ 50 mls/hr IV .Q20H [facility] Last Admin: 03/01/18 22:50 Dose: 50 mls/hr Morphine Sulfate (Morphine (Carpuject)) 2 mg IVP Q2HR PRN PRN Reason: PAIN Last Admin: 03/02/18 06:19 Dose: 2 mg Ondansetron HCl (Zofran Inj) 4 mg IVP Q4HR PRN PRN Reason: Nausea / Vomiting Last Admin: 02/25/18 16:04 Dose: 4 mg Ondansetron HCl (Zofran Odt) 4 mg TL Q4HR PRN PRN Reason: Nausea / Vomiting Polyethylene Glycol (Miralax) 17 gm PO DAILY [facility] Last Admin: 03/02/18 08:04 Dose: 17 gm Prochlorperazine Edisylate (Compazine Inj) 10 mg IVP Q4HR PRN PRN Reason: Nausea / Vomiting Last Admin: 02/25/18 19:47 Dose: 10 mg Prochlorperazine Maleate (Compazine Supp) 25 mg ME TID PRN PRN Reason: Nausea / Vomiting Saccharomyces Boulardii (Florastor) 250 mg PO BIDWM [facility] Last Admin: 03/02/18 08:03 Dose: 250 mg Scopolamine HBr (Transderm-Scop) 1 patch TOP Q3D [facility] Last Admin: 02/28/18 21:34 Dose: 1 patch Senna (Senokot) 8.6 - 17.2 mg PO DAILY [facility] Last Admin: 03/02/18 08:03 Dose: 8.6 mg Simethicone (Mylicon) 80 mg PO 0900,1300,1800,2100 PRN PRN Reason: Gas Last Admin: 02/26/18 18:23 Dose: 80 mg Sodium Chloride (Normal Saline Flush 0.9%) 10 ml IVP PRN PRN PRN Reason: NEEDED PER PROVIDER ORDERS Last Admin: 03/02/18 05:45 Dose: 20 ml Sodium Chloride (Normal Saline Flush 0.9%) 10 ml IVP 0100,0900,1700 [facility] Last Admin: 03/02/18 07:53 Dose: Not Given Albuterol Sulfate [Proair Hfa Inhaler] 2 puffs INH BID 02/24/18 Docusate Sodium 100 mg PO Q2D 02/24/18 Multivitamin [Theragran] 1 tab PO DAILY 02/24/18 diphenhydrAMINE HCl [Diphenhydramine HCl] 12.5 mg PO QPM 02/24/18 Objective - Vital Signs/Intake & Output Vital Signs: Vital Signs x48h Temp Pulse Pulse Resp BP Pulse Ox 03/02/18 08:00 36.7 C 80 18 100/45 L 92 03/02/18 07:19 80 18 03/02/18 05:27 36.8 C 79 20 122/51 L 95 Intake & Output: Intake & Output 02/27/18 02/28/18 03/01/18 03/02/18 23:59 23:59 23:59 23:59 Intake Total 2985.00 1388 8581.568 5297 Output Total 575 200 875 Balance 2410.00 1188 894.832 4489 - Objective General Appearance: positive: No acute distress, Alert. negative: Lethargic Eyes Bilateral: positive: Normal inspection, PERRL, No lid inflammation, Conjunctivae nml ENT: positive: ENT inspection nml, Pharynx nml, No signs of dehydration. negative: Purulent nasal drainage, Pharyngeal erythema, Oral lesions Neck: positive: Nml inspection, Thyroid nml, No JVD, Trachea midline. negative: Thyromegaly, Lymphadenopathy (R), Lymphadenopathy (L), Stiff neck, S welling/bruising, Tracheal deviation Respiratory: positive: Chest non-tender, No respiratory distress. negative: Wheezes, Rales Cardiovascular: positive: Regular rate & rhythm, No murmur, No gallop, Irregularly irregular. negative: Extrasystoles, Tachycardia, Bradycardia, JVD present, Systolic murmur, Diastolic murmur Peripheral Pulses: 2+ Radial (R), 2+ Radial (L), 2+ Dorsalis pedis (R), 2+ Dorsalis pedis (L) Abdomen: positive: Non-tender, No organomegaly, Nml bowel sounds, No distention. negative: Tenderness, Guarding, Rebound Back: positive: Nml inspection. negative: CVA tenderness (R), CVA tenderness (L) Skin: positive: Color nml, No rash, Warm, Dry. negative: Cyanosis, Diaphoresis, Pallor Extremities: positive: Non-tender, Full ROM, Nml appearance. negative: Calf tenderness, Joint swelling, Bill's sign/cords Neurologic/Psychiatric: positive: Sensation nml. negative: Weakness, Sensory loss, Facial droop, Slurred/abnml speech, Depressed mood/affect - Lab Results Fish Bones: 03/02/18 06:30 03/02/18 13:54 Other Labs: Lab Results x24hrs 03/02/18 03/02/18 Range/Units 06:30 06:30 WBC 10.8 (4.8-10.8) x10^3/uL RBC 3.68 L (4.20-5.40) 10^6/uL Hgb 10.9 L (12.0-16.0) g/dL Hct 32.4 L (37.0-47.0) % MCV 88.2 (81.0-99.0) fL MCH 29.7 (27.0-31.0) pg MCHC 33.6 (32.0-36.0) g/dL RDW 13.8 (12.0-15.0) % Plt Count 245 (130-450) 10^3/uL MPV 8.3 (7.9-10.8) fL Neut # (Auto) 8.6 H (1.5-6.6) 10^3/uL Lymph # (Auto) 0.7 L (1.5-3.5) 10^3/uL [place] # (Auto) 1.1 H (0.0-1.0) 10^3/uL Eos # (Auto) 0.4 (0.0-0.7) 10^3/uL Baso # (Auto) 0.0 (0.0-0.1) 10^3/uL Absolute Nucleated RBC 0.00 x10^3/uL Nucleated RBC % 0.0 /100WBC Sodium 144 (135-145) mmol/L Potassium 2.9 L (3.5-5.0) mmol/L Chloride 112 H (101-111) mmol/L Carbon Dioxide 23 (21-32) mmol/L Anion Gap 9.0 (6-13) BUN 16 (6-20) mg/dL Creatinine 0.9 (0.4-1.0) mg/dL Estimated GFR (MDRD) 59 L (>89) Glucose 100 (70-100) mg/dL Calcium 8.1 L (8.5-10.3) mg/dL Total Bilirubin 0.5 (0.2-1.0) mg/dL AST 15 (10-42) IU/L ALT 14 (10-60) IU/L Alkaline Phosphatase 63 (42-121) IU/L Total Protein 5.9 L (6.7-8.2) g/dL Albumin 2.6 L (3.2-5.5) g/dL Globulin 3.3 (2.1-4.2) g/dL Albumin/Globulin Ratio 0.8 L (1.0-2.2) ABX Reporting Has patient been on IV antibiotics over the past 48 hours?: Yes Sepsis Event Note (H) - Evaluation Current Stage of Sepsis: Ruled out Assessment/Plan - Problem List (1) Diverticulitis of gastrointestinal tract Impression: (1) Diverticulitis of gastrointestinal tract Impression: 03/02 denies abdominal pain, improved for her appetite, no N/V/D ST saw pt, a new diet recommendation for pt 03/01 pt denies abdominal pain, no N/V/D. it seems diverticulitis is controlled continue with Zosyn when pt is in the hospital 02/28 pt report he pain is controlled, no N/V/D continue antibiotics 02/27 pt report her abdominal is better, no N/V/D will slow update her diet, today will add full liquid diet, will update as pt's tolerated continue antibiotics pt's WBC is down to the normal. pt can not tolerate regular food yet, will cont inue clear liquid diet per pt's request. continue antibiotics continue antiemtosis continue IVF of NS, precaution of fluid overload (2) dysphagia, hx of Zenker diverticulum 03/02 consulted with surgeon, will follow up consulted with ST, started a new diet per ST's recommendation. Pt diagnosis Zenker diverticulum on 2010, since that, pt had not surgery intervention, and been managed by diet and cared by her daughter. cough when pt swallow anything. pt has hx of Zenker diverticulum consult with surgeon Dr. Shaun Betancourt D5 1/2NS with 40 mequ at 50cc/h, pt has hypokalemia k is 3.1 today (3) pneumonia 03/02 pt's WBC is down to 10.8 today, pt's cough is good control, no fever/chill continue antibiotics continue lab monitor, vital monitor pt has elevated WBC, decreased sats, cough with swallowing, CXR reveal pneumonia. it seems aspiration pneumonia treat with antibiotics, Zosyn and Vanco INH treatment as needed supplement O2 as needed (4) Nausea & vomiting 03/02 controlled, continue anti-emesis PRN 03/01 no more N/V 02/27 resolved, no more better, continue PRN of antiemosis Continue to treat underlying cause of diverticulitis. continue IVF of NS (5) Urinary retention 03/02 no issue report, stable 02/27 d/c padgett, closely monitor pt's urine output stable, Continue padgett. (6) Restless leg syndrome stable, continue IV lorazepam PRN , that may also help with her restless legs. (7) COPD (chronic obstructive pulmonary disease) 03/02, discussed with pt and her daugher about CT of her chest, advise pt followup head nurse and technology project manager as out-pt. Both pt and her daughter stated they understood, and will followup. 03/01 pt hx of COPD, now has pneumonia continue Duoneb PRN O2 supplement as needed treat with antibiotics 02/27 pt is with hx of COPD continue Duoneb PRN O2 supplement as needed stable, continue duo-neb as needed continue supplement of O2 as needed (8) generalized weakness 03/02 continue PT/OT training, plan d/c SNF 03/01 continue PT/OT pt present generalized weakness PT/OT consult, will followup (9) palliative care pt and pt's daughter like to palliative care consulted and called Susan Davis, she will see pt on coming Sunday.
[2018-03-03] MEDS: MORPHINE 2 MG/ML CARPUJECT IVP PRN (00:28)
[2018-03-03] MEDS: PIPERACILLIN/TAZOBACTAM 3.375 GM in SODIUM CHLORIDE 0.9% MINIBAG 100 ML IV SCH ×3 (00:29→14:14)
[2018-03-03] MEDS: VANCOMYCIN INJ 1 GM in SODIUM CHLORIDE 0.9% 250 ML IV SCH ×2 (01:19→11:38)
[2018-03-03] MEDS: POTASSIUM CHLORIDE INJ 40 MEQ in DEXTROSE 5%-0.45% NACL 980 ML IV SCH (01:23)
[2018-03-03] MEDS: IPRATROPIUM/ALBUTEROL 3 ML NEB INH SCH (05:58)
[2018-03-03 06:40] LABS: BASOPHILS # (AUTO) 0.1 10^3/uL (0.0-0.1); BASOPHILS % (AUTO) 0.7 %; EOSINOPHILS # (AUTO) 0.4 10^3/uL (0.0-0.7); EOSINOPHILS % (AUTO) 3.9 %; HGB - HEMOGLOBIN 10.3 g/dL (12.0-16.0); LYMPHOCYTES # (AUTO) 1.5 10^3/uL (1.5-3.5); LYMPHOCYTES % (AUTO) 15.8 %; MEAN CORPUSCULAR HEMOGLOBIN 29.7 pg (27.0-31.0); MEAN CORPUSCULAR HGB CONC 33.5 g/dL (32.0-36.0); MEAN CORPUSCULAR VOLUME 88.7 fL (81.0-99.0); MEAN PLATELET VOLUME 8.4 fL (7.9-10.8); MONOCYTES # (AUTO) 1.1 10^3/uL (0.0-1.0); MONOCYTES % (AUTO) 11.8 %; NEUTROPHILS # (AUTO) 6.4 10^3/uL (1.5-6.6); NEUTROPHILS % (AUTO) 67.8 %; PLT - PLATELET COUNT 275 10^3/uL (130-450); RED BLOOD COUNT 3.48 10^6/uL (4.20-5.40); WHITE BLOOD COUNT 9.5 x10^3/uL (4.8-10.8)
[2018-03-03 06:50] LABS: ALBUMIN 2.6 g/dL (3.2-5.5); ALBUMIN/GLOBULIN RATIO 0.8 (1.0-2.2); BILIRUBIN,TOTAL 0.4 mg/dL (0.2-1.0); CALCIUM 7.8 mg/dL (8.5-10.3); CREATININE 0.9 mg/dL (0.4-1.0); TOTAL PROTEIN 5.8 g/dL (6.7-8.2)
[2018-03-03] MEDS ORDERED: POTASSIUM CHLORIDE INJ 40 MEQ in SODIUM CHLORIDE 0.9% 480 ML IV ONE (07:17)
[2018-03-03] MEDS: FLUCONAZOLE 100 MG TABLET PO SCH (09:04)
[2018-03-03] MEDS: guaiFENesin 600 MG TABLET PO SCH (09:04)
[2018-03-03] MEDS: SACCHAROMYCES BOULARDII 250 MG CAPSULE PO SCH (09:04)
[2018-03-03] MEDS: DOCUSATE SODIUM 250 MG CAPSULE PO SCH (09:04)
[2018-03-03] MEDS: ENOXAPARIN 40 MG/0.4 ML SYRINGE SUBQ SCH (09:09)
[2018-03-03] MEDS: FUROSEMIDE 20 MG/2 ML VIAL IVP SCH (09:09)
[2018-03-03] MEDS: SENNA 8.6 MG TABLET PO SCH (09:20)
[2018-03-03] MEDS: POLYETHYLENE GLYCOL 3350 17 GM PACKET PO SCH (09:20)
[2018-03-03] MEDS: SODIUM CHLORIDE FLUSH 0.9% 10 ML SYRINGE IVP SCH (09:21)
--- NOTE | 2018-03-03 10:50 | Discharge Plan ---
"Discharge Plan for SNF / [facility] - Discharge Plan And Transition Orders Disposition: 03 SNF DC/Xfer Condition: Poor Allergies and Adverse Reactions: Allergies Allergy/AdvReac Type Severity Reaction Status Date / Time hydrocodone [From Vicodin] Allergy Hives Verified 02/24/18 10:22 pramipexole [From Mirapex] Allergy Hives Verified 02/24/18 10:22 pravastatin [From Pravachol] Allergy Hives Verified 02/24/18 10:22 - SNF / [facility] Transition Orders Admit to (Facility): [facility] Under the care of (Name): Dr. Joann Bonilla Discharge Diagnosis: diverticulitis, Zenker diverticulumn, Pneumonia, nausea/vomiting/cough, COPD, lung nodule Medicare Certification Statement: I certify that Post Hospital correction care is medically necessary on a continuing basis for any of the conditions for which she/he is receiving care during hospitalization. Notify PCP of admission and forward orders to primary provider for signature. Weight on admission and: Daily Call PCP immediately if weight increases by: 2 kg Other Notification Orders: Call PCP immediately if patient develops dyspnea, chest pain/tightness or edema. House Bowel Program: Yes Additional Bowel Program Orders: If no BM after 2 days, nurse may give M.O.M. 30ml PO PRN and/or ducolax Supp 1 OH and/or KASHIF 250mg P.O., and/or senna 1-2 tabs PO. On day 3 nurse may give repeat above order until residents constipation is resolved. Annual Influenza Vaccine (between Dec 01 and June 30): Yes Two-step PPD per [facility] [id number] or approved exception documents: Yes Treatments & Other Orders: Pt may followup her PCP Dr. Joann Bonilla when she is arrival to [facility]. Pt has Zenker diverticulumn which make her easy cough, difficult to swallow. Please be caution to aspiration. Pt has a recommendated diet as the following: pt may have soft low fiber, thin liquid, applesauce, yogurt, boost, moist mashed potates, ramen noodles, soft cooked broccoli, tomato juice, v-8 fruit juice. Oxygen Orders: PRN Lab Tests or X-ray Orders: Followup PCP as needed Medication Orders: PLEASE REFER TO THE DISCHARGE MEDICATION LIST. Insulin Orders?: No - Medications New Prescriptions: Amox/Clav 875/125 [Augmentin] 1 each PO Q12H #8 tablet Fluconazole [Diflucan] 100 mg PO DAILY #6 tablet Ipratropium/Albuterol [Duoneb] 3 ml INH Q6H PRN #10 neb PRN Reason: Shortness Of Air/Wheezing Saccharomyces Boulardii [Florastor] 250 mg PO BID #8 capsule - Diet May have monthly special meal: No (please review diet recommendation) - Therapies | Activity Therapy: Evaluation | Treat if indicated: PT, OT, Swallowing / ST Rehabilitation Potential: Maximize functional status Activity: Activity as Tolerated"
[2018-03-03] MEDS ORDERED: LORazepam 0.5 MG TABLET SL PRN (14:14)
--- NOTE | 2018-03-03 14:29 | Discharge Plan ---
Discharge Plan Disposition: Home Health Service Condition: Poor Prescriptions: Amox/Clav 875/125 [Augmentin] 1 each PO Q12H #8 tablet Fluconazole [Diflucan] 100 mg PO DAILY #6 tablet Ipratropium [Atrovent] 1 puffs INH Q6H PRN #1 inhaler PRN Reason: Shortness Of Air/Wheezing Saccharomyces Boulardii [Florastor] 250 mg PO BID #8 capsule Diet: Soft Activity Restrictions: Activity as Tolerated Shower Restrictions: No (fall precaution, caregiver closely monitor) Instruction Topics: Ipratropium aerosol inhaler, Fluconazole tablets, Amoxicillin Clavulanic Acid tablets Additional Instructions or Follow Up instructions: YOu may followup your PCP in one week, may followup wire repairer as out- pt to manage your Zenker diverticulumn, followup clothes separator as out-pt to mange your lung nodule, and followup paper reclaiming machine operator as out-pt to manage your thyroid nodule. You were found to have pneumonia, and apolinar in your sputum, you are prescribed antibiotics and fluconazole to continue the treatment course. you has a recommended diet in hospital as the following: pt may have soft low fiber, thin liquid, applesauce, yogurt, boost, moist mashed potates, ramen no odles, soft cooked broccoli, tomato juice, v-8 fruit juice. Please be caution to aspiration. You are arranged home health PT and home health aides. Should your symptoms return or worsen, you may present ER or call 911 for help. Follow-Up Care: Home Health - PT No Smoking: If you smoke, Please STOP! Call for help. Follow-up with: Joann Bonilla PA-C [Primary Care Provider] -
[2018-03-03 15:30] VITALS: BP 123/84
--- NOTE | 2018-03-03 15:31 | DISCHARGE SUMMARY ---
Discharge Summary Discharge Date: 03/03/18 Discharging Provider: CALL Primary Care Provider: Joann Dinero Condition at Discharge: Poor Discharge Disposition: SNF DC/Xfer Discharge Facility Name: [facility] - DIAGNOSES Admission Diagnoses: (1) Diverticulitis of gastrointestinal tract (2) COPD (chronic obstructive pulmonary disease) (3) Urinary retention (4) Restless leg syndrome Discharge Diagnoses with Status of Each Condition: (1) Diverticulitis of gastrointestinal tract pt denies abdominal pain, tolerate her appetite, no N/V/D, WBC is normal. (2) dysphagia, hx of Zenker diverticulum dysphagia is resolved after pt has special diet, recommended by . pt is advise to followup GI physician for her Zenker diverticulum as out-pt. special diet is refer to [facility]. (3) pneumonia WBC is down to normal, no fever/chill or cough. 92% sats on room air. RT study reveals pt does not need home oxygen. continue antibiotics and anti-apolinar to finish the treatment course. (4) Nausea & vomiting resolved (5) Urinary retention stable (6) Restless leg syndrome stable (7) COPD (chronic obstructive pulmonary disease) stable, no cough, SOB. 92% sats on room air. RT study reveals pt does not need home oxygen. pt is prescribed ipratropium PRN, followup PCP, and pulomonologist as out-pt (8) generalized weakness pt is recommended to SNF for continue training. (9) palliative care pt and her daughter request, followup palliative care (10) lung and thyroid nodules discuss with pt and her daughter about CT of chest and all image studies. advise pt followup cook short order and insecticide supervisor for her lung nodule and thyroid nodule. - HPI History of Present Illness: refer from Ms. Caba's HPI on 02/24/18 as the following Mely Gurrola is an elderly 87-year old female with a past medial history of urinary incontinence, bladder prolapse, vaginal wall prolapse, anemia, pre- diabetes, chronic sinusitis, otitis media, zenker's diverticulum, macular degeneration, thyroid nodule, muscle cramps, varicose veins, hyperglycemia, dysphagia, COPD, chronic hip pain, restless leg syndrome, diverticulosis, and obesity. The patient lives with her daughter, Kaia and has been independent on her own using only a cane. 2 days ago the patient started to have LLQ abdominal pain, loss of appetite, fever, chills, fatigue and this morning her daughter could not get her out of bed, so called EMS. Once in the ED she was found to have an elevated WBC count of 12.1, an elevated glucose of 148, with otherwise normal labs. Imaging confirmed diverticulitis with abscesses or perforation, a mild left hydro stone likely secondary to inflammation and urinary retention. With her history of a prolapsed bladder, and urinary retention, a padgett cath was inserted which did not show acute UTI and was noted to be dark in color. On exam, her daughter was very intrusive about asking for her PCP to be changed since Joann Bonilla will not prescribe Xanax anymore. It was very difficult to re-focus our conversation to her mother's acute illness and circled back to the opiate crisis, and her mother needing the xanax as she has restless leg syndrome and this is the only medication that has proved to help. On exam the patient is ill appearing, and her daughter talks over her for several of the questions. She denies chest pain, a productive cough, bleeding, rashes, or increased shortness of breath. She will be admitted to inpatient for further treatment of her acute illness. - HOSPITAL COURSE Hospital Course: pt was admitted for LLQ abdominal pain, N/V, and weakness. pt was found to have diverticulitis. pt was treated with antibiotics. Pt then present dysphagia due to her Zenker diverticulum. it was resolved by ST recommended diet and feeding. pt also developed pneumonia and hypoxia with hx of COPD. pt was treated with antibiotics and INH. pt's WBC is down to normal, no fever/chill or cough. 92% sats on room air. RT study reveals pt does not need home oxygen, continue antibiotics and anti-apolinar to finish the treatment course. pt was recommended to SNF for continuing training for her strength. pt's daughter frequently changed her mind for her mother's d/c plan. Finally pt and her daughter agree to be d/c to [facility], she is happy for that. All pt and her daughter's quests were answered, pt and her daughter state understood. - ALLERGIES Allergies/Adverse Reactions: Allergies Allergy/AdvReac Type Severity Reaction Status Date / Time hydrocodone [From Vicodin] Allergy Hives Verified 02/24/18 10:22 pramipexole [From Mirapex] Allergy Hives Verified 02/24/18 10:22 pravastatin [From Pravachol] Allergy Hives Verified 02/24/18 10:22 - MEDICATIONS Home Medications: Ambulatory Orders Medication Instructions Recorded Confirmed Albuterol Sulfate [Proair Hfa 2 puffs INH BID 02/24/18 02/24/18 Inhaler] Docusate Sodium 100 mg PO Q2D 02/24/18 02/24/18 Multivitamin [Theragran] 1 tab PO DAILY 02/24/18 02/24/18 diphenhydrAMINE HCl 12.5 mg PO QPM 02/24/18 02/24/18 [Diphenhydramine HCl] Amox/Clav 875/125 [Augmentin] 1 each PO Q12H #8 tablet 03/03/18 Fluconazole [Diflucan] 100 mg PO DAILY #6 tablet 03/03/18 Ipratropium [Atrovent] 1 puffs INH Q6H PRN #1 inhaler 03/03/18 Saccharomyces Boulardii [Florastor] 250 mg PO BID #8 capsule 03/03/18 - PHYSICAL EXAM AT DISCHARGE General Appearance: positive: No acute distress, Alert. negative: Lethargic Eyes Bilateral: positive: Normal inspection, PERRL, No lid inflammation, Conjunctivae nml ENT: positive: ENT inspection nml, Pharynx nml, No signs of dehydration. negative: Purulent nasal drainage, Pharyngeal erythema, Oral lesions Neck: positive: Nml inspection, Thyroid nml, No JVD, Trachea midline. negative: Thyromegaly, Lymphadenopathy (R), Lymphadenopathy (L), Stiff neck, Swel ling/bruising, Tracheal deviation Respiratory: positive: Chest non-tender, No respiratory distress. negative: Wheezes, Rales, Rhonchi Cardiovascular: positive: Regular rate & rhythm, No murmur, No gallop. negative: Irregularly irregular, Extrasystoles, Tachycardia, Bradycardia, JVD present, Systolic murmur Peripheral Pulses: positive: 2+ Abdomen: positive: Non-tender, No organomegaly, Nml bowel sounds, No distention. negative: Tenderness, Guarding, Rebound Back: positive: Nml inspection. negative: CVA tenderness (R), CVA tenderness (L) Skin: positive: Color nml, No rash, Warm, Dry. negative: Cyanosis, Diaphoresis, Pallor Extremities: positive: Non-tender, Nml appearance. negative: Calf tenderness, Joint swelling, Bill's sign/cords Neurologic/Psychiatric: positive: Oriented x3, Sensation nml, Mood/affect nml. negative: Weakness, Sensory loss, Facial droop, Slurred/abnml speech, Depressed mood/affect - LABS Result Diagrams: 03/03/18 06:05 03/03/18 06:05 - SEPSIS Current Stage of Sepsis: Ruled out - FOLLOW UP Follow Up: Pt may followup her PCP Dr. Joann Bonilla when she is arrival to [facility]. Pt has Zenker diverticulumn which make her easy cough, difficult to swallow. Please be caution to aspiration. Pt has a recommended diet as the following: pt may have soft low fiber, thin liquid, applesauce, yogurt, boost, moist mashed potates, ramen noodles, soft cooked broccoli, tomato juice, v-8 fruit juice. - TIME SPENT Time Spent in Discharge (Minutes): 60
--- NOTE | 2018-03-03 16:28 | CONSULTATION NOTE ---
Referring Provider Name of Referring Provider:: Garza NP Consult Date: 03/01/18 Chief Complaint - Chief Complaint Chief Complaint: Symptomatic Zenkers diverticulum History of Present Illness - Admitted From Admitted From:: ED - History Obtained From Records Reviewed: Yes History obtained from: Patient and daughter Exam Limitations: None but no examination done only discussion - History of Present Illness HPI Comment/Other: I am called upon to opine on this 87 year old female with a symptomatic Zenkers diverticulum. I was asked whether a PEG would be appropriate. Short answer it would not. The daughter and patient tell me that she has seen a material specialist for this in the past but that it has been years. Surgery was recommended but they opted not to do it. The patient now has difficulty swallowing many foods with regurgitation and increased mucus. There has been no hemetemesis, melena or hematochezia. The interview was doen in Room [facility]10 at [facility]'s med[facility]surg [facility]. Please note that the daughter did appear to be overly attentive at times. History - Past Medical History Cardiovascular: reports: Hypertension, High cholesterol, Murmur Respiratory: reports: COPD, Pneumonia, Other Neuro: reports: Dementia Endocrine/Autoimmune: reports: HyPOthyroidism GI: reports: GERD, Chronic diarrhea, Chronic constipation, Diverticulitis, Other (zenkers diverticulum) : reports: Incontinence, Nocturia, Frequency, Other (prolapsed bladder) HEENT: reports: Chronic vision loss Psych: reports: Depression, Anxiety Musculoskeletal: reports: Osteoarthritis, Chronic back pain Derm: reports: None MRSA Hx?: No - Past Surgical History General: reports: Appendectomy HEENT: reports: Cataracts - Family & Social History Family History: Mother: , Father: , Sister: , Brother: Family History Comment/Other: The patient's parents of old age with no known diseases, her brother after getting electrocuted. She had one sister with no known diseases. 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 She moved in with her daughter in [place] after her in 1999. She is independent with ambulation and ADLs and uses a cane at times. She admits to a 40 year smoking history, denies alcohol use or illicit drug use. - Substance History Use: Uses substance without health or social issues: NONE Abuse: Recurrent use of substance despite neg consequences: NONE Dependence: Experiences withdrawal or developed tolerances: NONE - POLST Patient has POLST: No POLST Status: DNR Meds/Allgy - Home Medications Home Medications: Ambulatory Orders Medication Instructions Recorded Confirmed Albuterol Sulfate [Proair Hfa 2 puffs INH BID 02/24/18 02/24/18 Inhaler] Docusate Sodium 100 mg PO Q2D 02/24/18 02/24/18 Multivitamin [Theragran] 1 tab PO DAILY 02/24/18 02/24/18 diphenhydrAMINE HCl 12.5 mg PO QPM 02/24/18 02/24/18 [Diphenhydramine HCl] Amox/Clav 875/125 [Augmentin] 1 each PO Q12H #8 tablet 03/03/18 Fluconazole [Diflucan] 100 mg PO DAILY #6 tablet 03/03/18 Ipratropium [Atrovent] 1 puffs INH Q6H PRN #1 inhaler 03/03/18 Saccharomyces Boulardii [Florastor] 250 mg PO BID #8 capsule 03/03/18 - Allergies Allergies/Adverse Reactions: Allergies Allergy/AdvReac Type Severity Reaction Status Date / Time hydrocodone [From Vicodin] Allergy Hives Verified 02/24/18 10:22 pramipexole [From Mirapex] Allergy Hives Verified 02/24/18 10:22 pravastatin [From Pravachol] Allergy Hives Verified 02/24/18 10:22 Review of Systems - Other Findings Other Findings: Not done as this process/questioning does not warrant it. Exam - Vital Signs Reviewed Vital Signs: Yes Vital Signs: Vital Signs x48h Temp Pulse Resp BP BP Pulse Ox 03/03/18 15:29 37 C 85 16 123/84 H 92 03/03/18 13:00 36.8 C 77 26 H 142/66 H 92 03/03/18 08:32 36.7 C 80 18 134/73 H 92 - Physical Exam Comments/Other: No physical examination done. Conclusion/Plan - Diagnosis Diagnosis: Symptomatic Zenkers diverticulum - Plan Plan: This 87 year old female has multiple co-morbidities and is an ASA Class 3 patient. A feeding tube will do nothing to help her swallowing. Surgical risks must be minimized. Considering that a stapled Zenkers diverticulostomy will fix the problem of her Zenkers diverticulum without ANY incision and with only a minimum of risk - this seems the way to go. I explained the pros and cons of surgical repair or diverticulopexy versus the stapled technique and it is clear that the stapled technique is superior for her for a multitude of reasons (some stated above). The patient then stated that she did not want to go "[place] island" and I explained that there is no surgeon "on island" that could do this operation for her and some specialized equipment is required. I fidel a representation on the white board documenting what the procedure entailed. The daughter and the patient vocalized an understanding. I wished her well and asked that I get called with any additional surgical questions. Approximately 40 minutes of [id number] time was spent with the patient and her daughter all in conversation. Thank you. - Lab Results Lab results reviewed: Yes Nolberto Bones: 03/03/18 06:05 03/03/18 06:05
[2018-03-06] MEDS ORDERED: IOPAMIDOL-300 100 ML VIAL IVP ONE (08:36)
== END 2018-03-03 15:30 | DRG 391 ==
LOC: EDUNIT# → ED 10:02 → MS2 14:12
PROVIDERS: ADMIT Nurse Practitioner; ATTEND Nurse Practitioner Gerontology
DX: K57.32 Diverticulitis of large intestine without perforation or abscess without bleeding (principal); E86.0 Dehydration; B37.1 Pulmonary candidiasis; J69.0 Pneumonitis due to inhalation of food and vomit; N13.30 Unspecified hydronephrosis; E87.6 Hypokalemia; J44.9 Chronic obstructive pulmonary disease, unspecified; R33.9 Retention of urine, unspecified; K22.5 Diverticulum of esophagus, acquired; E04.1 Nontoxic single thyroid nodule; R09.02 Hypoxemia; N81.10 Cystocele, unspecified; I10 Essential (primary) hypertension; G25.81 Restless legs syndrome; F03.90 Unspecified dementia, unspecified severity, without behavioral disturbance, psychotic disturbance, mood disturbance, and anxiety; E03.9 Hypothyroidism, unspecified; K21.9 Gastro-esophageal reflux disease without esophagitis; K59.09 Other constipation; Z51.5 Encounter for palliative care; Z66 Do not resuscitate; Z87.891 Personal history of nicotine dependence; Z79.899 Other long term (current) drug therapy
CPT/HCPCS: 36415; 51702; 71045; 71260; 74176; 80053; 81001; 81003; 83036; 83605; 83690; 83735; 84100; 84132; 84443; 85025; 86140; 87040; 87070; 87086; 87205; 93306; 94640; 94761; 96361; 96365; 96375; 96376; 99284

== ENCOUNTER 2018-03-13 09:09 | Outpatient (CLI) | payer MEDICARE ==
[2018-03-13 09:44] LABS: CALCIUM 8.4 mg/dL (8.5-10.3); CREATININE 0.8 mg/dL (0.4-1.0)
== END 2018-03-13 23:59 | disposition home or self-care (01) ==
LOC: LAB.R 09:09
DX: J44.9 Chronic obstructive pulmonary disease, unspecified (principal)
CPT/HCPCS: 80048